=== PATIENT | male | born 1970 | race Hispanic/Latino ===

== ENCOUNTER 2018-12-02 11:28 | Inpatient (IN) | payer OTHER, SELFPAY ==
[2018-12-02] VITALS (9 sets, daily range): BP systolic 106–155; BP diastolic 79–89; PULSE 100–136; RESP 16–28; TEMP 36.5–39.6; O2SAT 94–98; BMI 25.4; BMI 25.0
--- NOTE | 2018-12-02 11:49 | EKG12_ITS ---
Test Reason : COUGH Blood Pressure : / mmHG Vent. Rate : 132 BPM Atrial Rate : 132 BPM P-R Int : 130 ms QRS Dur : 070 ms QT Int : 306 ms P-R-T Axes : 037 -03 028 degrees QTc Int : 453 ms Sinus tachycardia Otherwise normal ECG Confirmed by DAPHNE WALLACE, NIKITA ([id number]), senior editor SUKI CONN ([id number]) on 12/04/2018 3:11:40 PM Referred By: Tyler Munoz Confirmed By:NIKITA SERNA MD
--- NOTE | 2018-12-02 11:49 | RAD_ITS ---
STUDY: X-RAY CHEST REASON FOR EXAM: Male, 48 years old. Cough. TECHNIQUE: Single AP portable view of the chest. COMPARISON: None. FINDINGS: EKG electrodes are seen. Low lung volumes. Increased markings at the lung bases suggestive of either bibasilar atelectasis and/or infiltrates. Follow-up is recommended. There is no demonstrated pleural abnormality. Normal size heart. Normal mediastinum and ericka. Normal visualized pulmonary arteries. Normal visualized aortic arch and descending thoracic aorta. Normal visualized thoracic spine. Normal visualized ribs, clavicles, and shoulders. There is no demonstrated abnormality of the visualized soft tissue structures of the upper abdomen. RAD/Chest 1 View (Portable) IMPRESSION: Increased markings at the lung bases suggestive of atelectasis and/or early infiltrates. Follow-up is recommended. Electronically Signed: Álvaro Chávez MD at 12:46 EST , Service support ,
--- NOTE | 2018-12-02 11:54 | NURSING ---
NO OLD EKGS
[2018-12-02 12:18] LABS: Absolute Lymphocyte Count 0.48 X10^3/ul (0.83-4.51); Absolute Neutrophil Count 5.3 X10^3/uL (2.0-7.7); Basophil# 0.03 X10^3/uL; Basophil% 0.5 % (0-1); Hematocrit 47.2 % (40-54); Hemoglobin 16.5 g/dl (13.0-16.5); Lymphocyte # 0.48 X10^3/ul (4.0); Lymphocyte % 7.7 % (19-41); Mean Corpuscular Hgb 32.9 pg (27.0-32.0); Mean Corpuscular Volume 94.2 fL (80-94); Mean Platelet Vol. 11.3 fl (6.2-12.0); Monocyte% 6.4 % (0-10); Neutrophil # 5.33 X10^3/uL (2.7-7.7); Neutrophil % 85.2 % (47-70); Platelet Count 196 K/mm3 (150-450); RBC Distribution Width CV 13.5 % (11.6-14.6); Red Blood Count 5.01 M/mm3 (4.6-6.2); White Blood Count 6.3 K/mm3 (4.4-11.0)
[2018-12-02 12:19] LABS: Differential Indicated SCAN CRITERIA MET; POSITIVE COUNT NO; POSITIVE DIFFERENTIAL YES; POSITIVE MORPHOLOGY NO
[2018-12-02] MEDS: Ondansetron 4 MG/2 ML Vial IV ×2 (12:19→17:56)
[2018-12-02] MEDS: 0.9% Normal Saline 1,000 ML 1000 ML IV ×2 (12:19→15:18)
[2018-12-02] MEDS: Acetaminophen 500 MG Tablet 1000 MG PO (12:20)
[2018-12-02 12:27] LABS: Anion Gap 13 (5-15); BUN 23 mg/dL (7-18); BUN/Creat Ratio 13.9 RATIO (10-20); Calcium,Total 9.1 mg/dL (8.5-10.1); Chloride 98 mmol/L (98-107); Creatinine, Serum 1.65 mg/dL (0.70-1.30); EST Glomerular Filtration Rate 47 mL/min (>60); Est Glom Filt Rate - Afr Amer 57 mL/min (>60); Glucose 117 mg/dL (74-106); Potassium 3.7 mmol/L (3.5-5.1); Sodium Level 131 mmol/L (136-145)
[2018-12-02 12:40] LABS: Bacteria 0 SEEN /hpf (None Seen); Mucous, Urine 0 SEEN /hpf (<or=2+); Red Blood Cells-Urine 0 SEEN /hpf (0-5); Squamous Epithelial Cells - UA 0 SEEN /hpf (0-5)
[2018-12-02 12:43] LABS: Color, Urine Yellow (Yellow); Glucose, Dipstick Normal (Normal); Ketone-Dipstick 15 mg/dl (Negative); Leukocyte Esterase-Dipstick 25 /ul (Negative); Nitrite-Dipstick Negative (Negative); Occult Blood-Urine 50 /ul (Negative); Protein-Dipstick 500 mg/dl (Negative); Specific Gravity, Urine 1.025 (1.002-1.030); Urine Clarity Sl. Cloudy (Clear); Urine Urobilinogen 1 mg/dl (Normal)
[2018-12-02] MEDS: Benzonatate 100 MG Capsule 200 MG PO (12:43)
[2018-12-02 12:44] LABS: Urine Bilirubin Dipstick 1 mg/dL (Negative)
[2018-12-02 12:52] LABS: White Blood Cells 0-5 SEEN /hpf (0-5)
[2018-12-02 12:53] LABS: Amorphous Sediment 1+; Fine Granular Cast- Urine 0-5 SEEN /lpf (0-5); Hyaline Cast 0-5 SEEN /lpf (0-5)
[2018-12-02 12:56] LABS: Platelet Estimate ADEQUATE (ADEQ); Red Cell Morphology NORM C+C NORMAL (NORM C&C)
--- NOTE | 2018-12-02 13:13 | ED.VISSUMM ---
- ER Visit Summary Date of Service: 12/02/18 Chief Complaint: Sick History of Present Illness: The patient is a 48 M with multiple symptoms that have been getting worse over the past week. He has had a fever, shakes, cough, nausea, vomiting, decreased sleep. Symptoms are severe despite taking ibuprofen and Mucinex. He is otherwise previously healthy. He quit smoking. He did not have a flu shot this year. Physical Examination: Afebrile. Blood pressure normal. Heart rate 136 and respiratory rate 18. 98% on room air. Patient is alert and oriented. No acute distress. HEENT exam unremarkable. Heart is tachycardic but regular. Lungs are clear bilaterally. Abdomen soft and nontender. CVA is nontender. Skin is normal without rash. Test Results: EKG showed sinus rhythm at a rate of 132. No sign of acute ischemia or infarction pattern. CBC unremarkable. Sodium 131, CO2 20, glucose 117, BUN 23, creatinine 1.65. Urinalysis shows no sign of UTI. Influenza test negative. Chest x-ray showed bibasilar atelectasis versus infiltrates. Cultures and lactic acid pending. Emergency Department Course and Treatment: Patient has symptoms of influenza. He is tachycardic. He was treated with fluids, Tylenol, Zofran. On reevaluation, temperature is 103 and heart rate remains in the 120s. Respiratory rate is in the 20s. Patient meets SIRS criteria. Influenza test was negative. White count was normal. Labs showed an elevated creatinine. I do not have a baseline, but I am concerned for acute kidney injury. His chest x-ray was not overly impressive, but it does appear that he might have some early infiltrates. I am concerned for a respiratory infection with sepsis. I did add on a lactic acid as well as cultures and he was treated with Levaquin. I will discuss with the hospitalist, as I believe he could benefit from antibiotics, fluids, and close monitoring. Treatment Plan: As above Disposition: Admission Impression: 1. Pneumonia 2. Sepsis 3. Acute kidney injury This note was generated with [employer] dictation software. It may contain incorrect words, spelling, and punctuation that were not noted in review of the chart prior to signing ED Disposition - Plan for ED Patient: Chief Complaint: General Illness Referrals: Care Physician,No Primary [Primary Care Provider] -
[2018-12-02] MEDS: levoFLOXacin IV 750 MG/150 ML BAG 100 MG IV (13:40)
--- NOTE | 2018-12-02 14:04 | NURSING ---
MED SURG SEPSIS, PNEUMONIA, SAMINA DOMINIC
[2018-12-02 14:14] LABS: Lactic Acid 1.6 mmol/L (0.4-2.0)
--- NOTE | 2018-12-02 16:30 | HP.PCM_ITS ---
Problem List (1) Nonproductive cough Status: Acute (2) Chills Status: Acute (3) Malaise and fatigue Status: Acute History of Present Illness Date of Admission: 12/02/18 Chief Complaint: Malaise, chills, nonproductive cough, subjective fever The patient is a 48 year old M seen in the emergency room at [facility] with chief complaint of nonproductive cough, chills, and subjective fever over the last week. Patient also complained of generally not feeling well. Patient also complained of some intermittent diarrhea over the last 48 hours. Patient denied any hemoptysis, denied any dysuria, he denied any hematuria. Patient did complain of generalized muscle aching and pain in his rib area which she felt was secondary to persistent coughing. Workup in the emergency room included a white blood cell count which was normal at 6.3, chemistry profile was remarkable for a creatinine of 1.65 with an elevated BUN of 23, patient's lactic acid was normal, patient's influenza screen was negative. Vital signs obtained in the emergency room revealed a temperature of 103.2, patient was tachycardic and was sweaty. Patient had a chest x-ray which showed increased markings at the lung bases indicative of possible pneumonia or atelectasis. Patient's pulse ox on room air was normal. Patient was felt to have community-acquired pneumonia with sepsis, he was given IV Levaquin and he will be admitted to the [facility] floor for treatment. Past Medical History Allergies No Known Allergies Allergy (Verified 12/02/18 11:31) Surgical History: no surgical history Psychiatric History: No pertinent psych hx Lives: Spouse/ Significant Other Smoking Status: Former smoker Tobacco Use: Cigarettes Alcohol: Occasional Drugs: None - *Family History Maternal History Items: No pertinent history Paternal History Items: No pertinent history Review of Systems Constitutional: Reports: Chills, Fever, Malaise, Fatigue. Denies: Anorexia, Night Sweats, Weakness, Weight Change Eyes: Denies: Blurred vision, Cataracts, Conjunctivae Inflammation, Double vision, Drainage HEENT: Denies: Difficulty Swallowing, Dysphasia, Ear Pain, Eye Pain, Hearing Changes, Nasal bleeding, Nasal Congestion, Post Nasal Drip Cardiovascular: Reports: Chest Pain - Patient complained of rib pain. Denies: Claudication, Chest Pressure, Chest Tightness, Edema, Heaviness, Orthopnea, Palpitations, Paroxysmal Noc. Dyspnea, Syncope Respiratory: Reports: Cough. Denies: Hemoptysis, Shortness of Breath, Shortness of breath at rest, Shortness of breath upon exertion, Sputum production, Wheezing Gastrointestinal: Reports: Diarrhea. Denies: Abdominal Pain, Constipation Genitourinary: Denies: Frequency, Hematuria, Nocturia, Retention Musculoskeletal: Reports: Muscle pain - Generalized muscle pain times several days. Denies: Foot Pain, Hand Pain, Joint stiffness, Joint swelling, Joint Tenderness, Leg Pain Skin: Denies: Dryness, Jaundice, Pruritis, Rash Neurological: Denies: Balance problems, Blurred vision, Double vision, Change in Speech, Difficulty swallowing, Focal weakness, Headaches, Incoordination Psychiatric: Denies: Anxiety, Depression Endocrine: Denies: Heat/ Cold Intolerance, Polydipsia, Hx of Irradiation, Hx of Thyroiditis Hematologic/ Lymphatic: Denies: Anemia, Easy Bruising, Purpura, Hx of blood clot VTE Information - Inpt Only VTE Present on Admission: No VTE Mechan Device Prophylaxis: None VTE Pharm Prophylaxis ordered?: No Reason prophylaxis not ordered:: Treatment Not Indicated - low risk for VTE Patient Problems: Active and Suspected Problems Nonproductive cough (Acute) Chills (Acute) Malaise and fatigue (Acute) - Physical Exam General: Alert, Oriented x3, Cooperative, No apparent distress, Well developed, Well nourished HEENT: Atraumatic, PERRLA, EOMI, Normocephalic Oral: Dry Mucosa Neck: Supple, No JVD, Negative Carotid Bruits, No Nuchal Rigidity, Trachea Midline, Thyroid Normal Size and Texture Lungs: Normal air movement, No rhonchi, No wheeze, Rales - Inspiratory rales were noted at the right lung base Cardiovascular: Regular rate, Regular Rhythm, No murmurs, PMI Normal, No rub noted, No Gallop, Tachycardic Abdomen: Bowel Sounds Present, Soft, Non Tender, Non-Distended, No hernias noted Extremities: No clubbing, No cyanosis, No edema, Capillary Refill Less than 3 Seconds Skin: No rashes, No breakdown Musculoskeletal: No Tenderness to Palpation of Joints or Extremities Neurological: Cranial nerves II-XII grossly intact, Neuro grossly intact, Muscle tone normal, Sensory exam intact to light touch and pain, Coordination normal Psych/Mental Status: Normal Affect, Appropriate, Alert and oriented to time, place, person, mood and affect Vital Signs Temp Pulse Resp BP Pulse Ox 101.7 F H 114 H 28 H 106/83 H 94 12/02/18 14:50 12/02/18 14:50 12/02/18 14:50 12/02/18 14:50 12/02/18 14:50 Oxygen Delivery Method Room Air Weight: 60.1 kg Body Mass Index (BMI) 25.0 Microbiology Past 72 Hours 12/02/18 12:05 Influenza Types A,B Direct FA (ADITYA) - Final Mucosa - Nose Laboratory Tests Past 24 Hrs 12/02/18 12/02/18 12/02/18 12:05 12:05 12:30 WBC 6.3 RBC 5.01 Hgb 16.5 Hct 47.2 MCV 94.2 H MCH 32.9 H MCHC 35.0 RDW 13.5 RDW Differential 45.0 H Plt Count 196 MPV 11.3 Immature Gran % (Auto) 0.200 Neut % (Auto) 85.2 H Lymph % (Auto) 7.[address] [place] % (Auto) 6.4 Eos % (Auto) 0.0 Baso % (Auto) 0.5 Absolute Neuts (auto) 5.3 Absolute Lymphs (auto) 0.48 L Total Counted Not Reportable Differential Comment Platelet Estimate ADEQUATE RBC Morphology NORM C+C Sodium 131 L Potassium 3.7 Chloride 98 Carbon Dioxide 20.0 L Anion Gap 13 BUN 23 H Creatinine 1.65 H Estim Creat Clear Calc 40.50 Est GFR (MDRD) Af Amer 57 L Est GFR (MDRD) Non-Af 47 L BUN/Creatinine Ratio 13.9 Glucose 117 H Lactic Acid Calcium 9.1 Urine Color Yellow Urine Clarity Sl. Cloudy Urine pH 5.0 Ur Specific [place] 1.025 Urine Protein 500 H Urine Glucose (UA) Normal Urine Ketones 15 H Urine Occult Blood 50 H Urine Nitrite Negative Urine Bilirubin 1 H Urine Urobilinogen 1 H Ur Leukocyte Esterase 25 H Urine RBC 0 SEEN Urine WBC 0-5 SEEN Ur Squamous Epith Cells 0 SEEN Amorphous Sediment 1+ Urine Bacteria 0 SEEN Hyaline Casts 0-5 SEEN Fine Granular Casts 0-5 SEEN Urine Mucus 0 SEEN 12/02/18 13:15 WBC RBC Hgb Hct MCV MCH MCHC RDW RDW Differential Plt Count MPV Immature Gran % (Auto) Neut % (Auto) Lymph % (Auto) [place] % (Auto) Eos % (Auto) Baso % (Auto) Absolute Neuts (auto) Absolute Lymphs (auto) Total Counted Differential Comment Platelet Estimate RBC Morphology Sodium Potassium Chloride Carbon Dioxide Anion Gap BUN Creatinine Estim Creat Clear Calc Est GFR (MDRD) Af Amer Est GFR (MDRD) Non-Af BUN/Creatinine Ratio Glucose Lactic Acid 1.6 Calcium Urine Color Urine Clarity Urine pH Ur Specific [place] Urine Protein Urine Glucose (UA) Urine Ketones Urine Occult Blood Urine Nitrite Urine Bilirubin Urine Urobilinogen Ur Leukocyte Esterase Urine RBC Urine WBC Ur Squamous Epith Cells Amorphous Sediment Urine Bacteria Hyaline Casts Fine Granular Casts Urine Mucus Assessment/Plan All Active Problems Nonproductive cough (Acute) Chills (Acute) Malaise and fatigue (Acute) #1 sepsis secondary to bilateral community-acquired pneumonia-patient will be admitted to [facility], given IV Levaquin daily, labs will be monitored #2 bilateral community-acquired pneumonia-felt to be either viral or gram- positive bacterial-test x-ray will be repeated tomorrow, urinary antigens for strep pneumonia and Legionella will be obtained, respiratory panel will be obtained #3 dehydration-IV fluids will be given #4 diarrhea-etiology unclear at this point, patient will be given Imodium as needed and this will be monitored Code Visit Inpatient E&M: 04212 Init Hosp L3
[2018-12-02] MEDS: 0.9% Normal Saline 1,000 ML 175 ML IV ×2 (16:51→22:50)
[2018-12-02] MEDS: Acetaminophen 325 MG Tablet 650 MG PO (17:55)
[2018-12-02] MEDS: 0.9% NaCl Peripheral Flush Adult/Peds IV (17:56)
[2018-12-02] MEDS: Albuterol 2.5 MG/3 ML VIAL.NEB. INHALATION (19:20)
[2018-12-02] MEDS: guaiFENesin Dm 10 ML UDC PO (22:56)
[2018-12-03] VITALS (9 sets, daily range): BP systolic 116–136; BP diastolic 73–89; PULSE 78–101; RESP 14–20; TEMP 37.2–38.7; O2SAT 95–98
[2018-12-03] MEDS: Ondansetron 4 MG/2 ML Vial IV (00:13)
[2018-12-03] MEDS: 0.9% NaCl Peripheral Flush Adult/Peds IV (00:13)
[2018-12-03] MEDS: Acetaminophen 325 MG Tablet 650 MG PO ×3 (01:48→17:08)
[2018-12-03] MEDS: 0.9% Normal Saline 1,000 ML 175 ML IV ×4 (05:13→23:17)
[2018-12-03] MEDS: guaiFENesin Dm 10 ML UDC PO (05:13)
--- NOTE | 2018-12-03 05:59 | RAD_ITS ---
STUDY: X-RAY CHEST REASON FOR EXAM: Male, 48 years old. Cough. TECHNIQUE: PA and lateral views of the chest. COMPARISON: Comparison is made with prior study dated December 02, 2018. FINDINGS: There now is evidence of bilateral patchy infiltrates worse in the right lower lobe. There is no demonstrated pleural abnormality. Normal size heart. Normal mediastinum and ericka. Normal visualized pulmonary arteries. Normal visualized aortic arch and descending thoracic aorta. There are degenerative changes of the visualized thoracic spine. Normal visualized ribs, clavicles, and shoulders. There is no demonstrated abnormality of the visualized soft tissue structures of the upper abdomen. RAD/Chest PA and Lateral IMPRESSION: Bilateral patchy infiltrates worse in the right lower lobe. This has progressed as compared to prior study. Electronically Signed: Álvaro Chávez MD at 8:34 EST , Service support ,
[2018-12-03] MEDS: Albuterol 2.5 MG/3 ML VIAL.NEB. INHALATION ×3 (07:15→18:51)
--- NOTE | 2018-12-03 07:47 | PN_ITS ---
Patient Problems: Active and Suspected Problems Nonproductive cough (Acute) Chills (Acute) Malaise and fatigue (Acute) Subjective: Patient is a [age]-year-old gentleman admitted with progressive generalized weakness associated with fever and cough. An assessment of sepsis secondary to bilateral pneumonia was made admitted to regular nursing floor for further management 12/03/2018: Patient seen shivering in bed, complaining of sore throat did request for throat culture as well as rapid strep throat screen Objective: GENERAL: cooperative HEENT: Atraumatic; moist oral mucosa EYES; Anicteric, Normal Conjunctiva NECK; supple, normal thyroid, no distended JVD. RESPIRATORY: Diminished to auscultation bilaterally, CARDIOVASCULAR: Regular S1 S2, no audible murmurs GI: soft, non-tender, normoactive bowel sounds, : No Renal angle tenderness; EXTREMITIES: No edema, no clubbing, no cyanosis. MUSCULOSKELETAL: No Joint Tenderness; no muscle waisting NEURO: Awake; no lateralizing signs. SKIN: No Rash PSYCH; Normal affect Vitals/I&O's: Vital Signs Temp Pulse Resp BP Pulse Ox 99.5 F H 101 H 18 136/89 H 97 12/03/18 02:00 12/03/18 02:00 12/03/18 02:00 12/03/18 02:00 12/03/18 02:00 Oxygen Delivery Method Room Air Weight: 60.1 kg Body Mass Index (BMI) 25.0 Intake and Output for Last 24 Hours 12/01/18 12/02/18 12/03/18 23:59 23:59 23:59 Intake Total 1564 / 1564 2956 / 2956 Balance 1564 / 1564 2956 / 2956 Microbiology Past 72 Hours 12/02/18 16:10 Mucosa - Nasopharyngeal Respiratory Panel (PCR) - Final 12/02/18 23:00 Sputum, Expectorated/Coughed Gram Stain - Preliminary 12/02/18 12:30 Urine, Clean Catch Legionella Antigen - Final 12/02/18 12:30 Urine, Clean Catch Streptococcus pneumoniae Antigen (M - Final 12/02/18 12:05 Mucosa - Nose Influenza Types A,B Direct FA (ADITYA) - Final Laboratory Results 12/02/18 12:05: WBC 6.3, RBC 5.01, Hgb 16.5, Hct 47.2, MCV 94.2 H, MCH 32.9 H, MCHC 35.0, RDW 13.5, RDW Differential 45.0 H, Plt Count 196, MPV 11.3, Immature Gran % (Auto) 0.200, Neut % (Auto) 85.2 H, Lymph % (Auto) 7.7 L, [place] % (Auto) 6.4, Eos % (Auto) 0.0, Baso % (Auto) 0.5, Absolute Neuts (auto) 5.3, Absolute Lymphs (auto) 0.48 L, Total Counted Not Reportable, Differential Comment , Platelet Estimate ADEQUATE, RBC Morphology NORM C+C 12/02/18 12:05: Sodium 131 L, Potassium 3.7, Chloride 98, Carbon Dioxide 20.0 L, Anion Gap 13, BUN 23 H, Creatinine 1.65 H, Estim Creat Clear Calc 40.50, Est GFR (MDRD) Af Amer 57 L, Est GFR (MDRD) Non-Af 47 L, BUN/Creatinine Ratio 13.9, Glucose 117 H, Calcium 9.1 12/02/18 12:30: Urine Color Yellow, Urine Clarity Sl. Cloudy, Urine pH 5.0, Ur Specific [place] 1.025, Urine Protein 500 H, Urine Glucose (UA) Normal, Urine Ketones 15 H, Urine Occult Blood 50 H, Urine Nitrite Negative, Urine Bilirubin 1 H, Urine Urobilinogen 1 H, Ur Leukocyte Esterase 25 H, Urine RBC 0 SEEN, Urine WBC 0-5 SEEN, Ur Squamous Epith Cells 0 SEEN, Amorphous Sediment 1+, Urine Bacteria 0 SEEN, Hyaline Casts 0-5 SEEN, Fine Granular Casts 0-5 SEEN, Urine Mucus 0 SEEN 12/02/18 13:15: Lactic Acid 1.6 Current Medications Acetaminophen (Tylenol) 650 mg PO Q6H PRN PRN PRN Reason: Mild Pain (scale 0-3)/T>100.7 Last Admin: 12/03/18 07:45 Dose: 650 mg Albuterol Sulfate (Ventolin Aerosols) 2.5 mg INHALATION Q6HWA.RT MARY Last Admin: 12/03/18 07:15 Dose: 2.5 mg Guaifenesin (Robitussin Dm) 10 ml PO Q6H PRN PRN PRN Reason: COUGH Last Admin: 12/03/18 05:13 Dose: 10 ml Sodium Chloride () 1,000 mls @ 175 mls/hr IV .Q5H43M [facility] Last Admin: 12/03/18 05:13 Dose: 175 mls/hr Levofloxacin (Levaquin Iv) 750 mg in 150 mls @ 100 mls/hr IV Q24 [facility] Influenza Virus Vaccine Quadrival (Fluarix/Fluzone) 0.5 ml IM .ONCE ONE Stop: 12/03/18 10:01 Loperamide HCl (Imodium) 4 mg PO Q6H PRN PRN PRN Reason: DIARRHEA Ondansetron HCl (Zofran) 4 mg IV Q6H PRN PRN PRN Reason: NAUSEA Ondansetron HCl (Zofran) 4 mg IV Q6 [facility] Last Admin: 12/03/18 05:14 Dose: Not Given Sodium Chloride () 5 - 15 ml IV UD PRN PRN Reason: SALINE FLUSH Last Admin: 12/03/18 00:13 Dose: 10 ml Medical Necessity - Tobacco Use Smoking Status: Former smoker Tobacco Use: Cigarettes Assessment/Plan All Active Problems Nonproductive cough (Acute) Chills (Acute) Malaise and fatigue (Acute) Patient is a [age]-year-old gentleman admitted with progressive generalized weakness associated with fever and cough. An assessment of sepsis secondary to bilateral pneumonia was made admitted to regular nursing floor for further management 1. Sepsis secondary to community-acquired pneumonia: Patient has been admitted to a regular nursing floor cultures were sent on admission. Patient placed on IV fluid, antibiotics (Levaquin) as well as supplemental oxygen titrated to keep oxygen saturation greater than 90 2. Dehydration secondary to above on IV fluids with monitoring of electrolyte 3. Hyponatremia on IV fluids with monitoring of electrolytes 4. Diarrhea initially suspected to be secondary to acute viral gastroenteritis treated symptomatically 5. DVT prophylaxis SC Lovenox Active Medications Acetaminophen (Tylenol) 650 mg PO Q6H PRN PRN PRN Reason: Mild Pain (scale 0-3)/T>100.7 Last Admin: 12/03/18 07:45 Dose: 650 mg Albuterol Sulfate (Ventolin Aerosols) 2.5 mg INHALATION Q6HWA.RT [facility] Last Admin: 12/03/18 07:15 Dose: 2.5 mg Guaifenesin (Robitussin Dm) 10 ml PO Q6H PRN PRN PRN Reason: COUGH Last Admin: 12/03/18 05:13 Dose: 10 ml Sodium Chloride () 1,000 mls @ 175 mls/hr IV .Q5H43M MARY Last Admin: 12/03/18 05:13 Dose: 175 mls/hr Levofloxacin (Levaquin Iv) 750 mg in 150 mls @ 100 mls/hr IV Q24 [facility]ARY Influenza Virus Vaccine Quadrival (Fluarix/Fluzone) 0.5 ml IM .ONCE ONE Stop: 12/03/18 10:01 Loperamide HCl (Imodium) 4 mg PO Q6H PRN PRN PRN Reason: DIARRHEA Ondansetron HCl (Zofran) 4 mg IV Q6H PRN PRN PRN Reason: NAUSEA Ondansetron HCl (Zofran) 4 mg IV Q6 MARY Last Admin: 12/03/18 05:14 Dose: Not Given Sodium Chloride () 5 - 15 ml IV UD PRN PRN Reason: SALINE FLUSH Last Admin: 12/03/18 00:13 Dose: 10 ml Clinical Impression(s) from Imaging Studies Chest X-Ray 12/02/18 11:49 IMPRESSION: Increased markings at the lung bases suggestive of atelectasis and/or early infiltrates. Follow-up is recommended. Electronically Signed: Álvaro Chávez MD at 12:46 EST , Service support , Code Visit Inpatient E&M: [id number] Subs Hosp L3
--- NOTE | 2018-12-03 08:42 | CT_ITS ---
STUDY: CT CHEST WITHOUT CONTRAST REASON FOR EXAM: Male, 48 years old. Cough, fatigue and chills. RADIATION DOSAGE (If Supplied By Facility): CTDIvol = ( 13.35 ) mGy, DLP = ( 493.59 ) mGycm TECHNIQUE: Transaxial imaging was performed without the administration of intravenous contrast material. Multiplanar coronal and sagittal images were reformatted. Individualized dose optimization techniques were used for this CT. COMPARISON: Comparison is made with prior chest radiograph done earlier in the day. FINDINGS: Small bilateral benign-appearing axillary lymph nodes. Multifocal patchy alveolar infiltrates in both lungs worse in the right upper lobe and right lower lobe. This may represent pneumonic infiltrates. Radiological follow-up is recommended. There is no demonstrated pleural abnormality. There are calcifications of the coronary arteries. There are multiple small lymph nodes within the mediastinum, which are normal in size and morphology most compatible with reactive lymph hyperplasia. Normal hilar regions. Normal unenhanced pulmonary arteries. Normal aorta arch and descending thoracic aorta. There are multi-level degenerative changes of the thoracic spine. Fatty infiltration of the liver. There is a 1 cm x 9.3 mm cyst in the lower aspect of the right lobe of the liver. Small hiatal hernia. CT/Chest without Contrast IMPRESSION: Multifocal patchy alveolar infiltrates worse in the right upper and right lower lobes. This may represent pneumonic infiltrates. Radiographic follow-up is recommended. Diffuse fatty infiltration of the liver. I suspect a 1 cm x 0.93 cm cyst in the right lobe of the liver. Electronically Signed: Álvaro Chávez MD at 13:49 EST , Service support ,
[2018-12-03 09:12] LABS: Hematocrit 37.9 % (40-54); Mean Corp Hgb Conc 34.3 g/gl (32-36); Mean Corpuscular Hgb 33.1 pg (27.0-32.0); Mean Corpuscular Volume 96.4 fL (80-94); Mean Platelet Vol. 10.8 fl (6.2-12.0); Platelet Count 184 K/mm3 (150-450); RBC Distribution Width CV 13.5 % (11.6-14.6); RBC Distribution Width SD 46.2 fl (35.1-43.9); Red Blood Count 3.93 M/mm3 (4.6-6.2); White Blood Count 4.5 K/mm3 (4.4-11.0)
[2018-12-03 09:15] LABS: Scan Indicated on CBC? Y/N NO
[2018-12-03 09:30] LABS: Anion Gap 9 (5-15); BUN 9 mg/dL (7-18); BUN/Creat Ratio 10.8 RATIO (10-20); Calcium,Total 7.4 mg/dL (8.5-10.1); Chloride 109 mmol/L (98-107); Creatinine, Serum 0.84 mg/dL (0.70-1.30); EST Glomerular Filtration Rate 104 mL/min (>60); Est Glom Filt Rate - Afr Amer 126 mL/min (>60); Estimated Creatinine Clearance 79.56 ml/min; Glucose 93 mg/dL (74-106); Magnesium 2.2 mg/dL (1.6-2.6); Potassium 3.6 mmol/L (3.5-5.1); Sodium Level 137 mmol/L (136-145)
[2018-12-03 09:31] LABS: Lactic Acid 1.1 mmol/L (0.4-2.0)
[2018-12-03] MEDS: levoFLOXacin IV 750 MG/150 ML BAG 100 MG IV (09:52)
[2018-12-03] MEDS: Oseltamivir Phosphate 30 MG Capsule PO ×2 (09:54→21:36)
--- NOTE | 2018-12-03 13:30 | CASEMGMT ---
AMRIK GRAY Face to Face with patient for initial transition planning/care coordination assessment. RN MARINA introduced self and role at [facility]. Patient lying in bed, alert and oriented. Patient willing to participate in assessment and is able to answer all questions appropriately. Care providers, pharmacy, and demographics verified. Patient wishes to discharge home, denies need for home health at this time. Patient states he has no further needs or concerns at this time. CM to follow for discharge planning needs that may arise. PCP: No PCP. Will provide patient of list of local Primary Providers Specialists: None [facility] Insurance: [employer] Prescription Benefit: Yes Living Will/HPOA: None LNOK: Significant other ADA Living Arrangements: Patient lives with Ada in an apartment with no step to enter. Patient is independent at home. Transportation: Ada, sig. other DME/HHC: Patient denies need for DME. Disposition Plan: Patient to discharge home with family support and follow-up plans in place. Gwen AN, RN, CM
--- NOTE | 2018-12-03 16:44 | CHAPLAIN ---
Type of Pastoral Visit _x__ Initial Visit ___ Follow-up Visit ___ On-call Visit ___ General Patient Visit ___ Spiritual Assessment ___ Family Conference ___ Bereavement ___ Rapid Response ___ Code Blue ___ Other (describe below) Pastoral Care Referral From _x__ Patient ___ Family ___ Nurse ___ Physician ___ Media Services Coordinator ___ [employer] ___ Other (describe below) Sacrament/Intervention _x__ Active listening ___ Anointing ___ Hoahaoism _x__ Bereavement ___ Communion _x__ Jo exploration ___ ___ Life review _x__ Prayer ___ Reconciliation ___ Sacrament of Sick _x__ Supportive presence ___ Wedding ___ Other (describe below) Pastoral Comments learned that patient's mother has recently ;
[2018-12-04] VITALS (10 sets, daily range): BP systolic 115–139; BP diastolic 50–91; PULSE 78–104; RESP 16–18; TEMP 36.3–38.1; O2SAT 93–99
[2018-12-04] MEDS: guaiFENesin Dm 10 ML UDC PO ×2 (00:04→11:03)
[2018-12-04] MEDS: 0.9% Normal Saline 1,000 ML 175 ML IV (05:14)
[2018-12-04 06:03] LABS: Anion Gap 11 (5-15); BUN 6 mg/dL (7-18); BUN/Creat Ratio 8.2 RATIO (10-20); Calcium,Total 7.9 mg/dL (8.5-10.1); Chloride 108 mmol/L (98-107); Creatinine, Serum 0.73 mg/dL (0.70-1.30); EST Glomerular Filtration Rate 121 mL/min (>60); Est Glom Filt Rate - Afr Amer 147 mL/min (>60); Estimated Creatinine Clearance 91.54 ml/min; Glucose 106 mg/dL (74-106); Magnesium 2.1 mg/dL (1.6-2.6); Potassium 3.7 mmol/L (3.5-5.1); Sodium Level 140 mmol/L (136-145)
[2018-12-04 06:04] LABS: Hematocrit 37.3 % (40-54); Hemoglobin 12.7 g/dl (13.0-16.5); Mean Corpuscular Hgb 33.2 pg (27.0-32.0); Mean Corpuscular Volume 97.4 fL (80-94); Mean Platelet Vol. 11.1 fl (6.2-12.0); Platelet Count 189 K/mm3 (150-450); RBC Distribution Width CV 13.5 % (11.6-14.6); RBC Distribution Width SD 46.5 fl (35.1-43.9); Red Blood Count 3.83 M/mm3 (4.6-6.2); Scan Indicated on CBC? Y/N NO; White Blood Count 6.8 K/mm3 (4.4-11.0)
[2018-12-04] MEDS: Albuterol 2.5 MG/3 ML VIAL.NEB. INHALATION ×2 (07:15→13:54)
--- NOTE | 2018-12-04 08:48 | DCINST_ITS ---
- Discharge Diagnoses Current Active Problems: Current Active and Chronic Problems Nonproductive cough (Acute) Chills (Acute) Malaise and fatigue (Acute) You will use the following diet at home:: No restrictions Discharge Activity: Return to Normal Activity Allergies/Adverse Reactions: Allergies No Known Allergies Allergy (Verified 12/02/18 11:31) Medications to take at Discharge levoFLOXacin tablet [Levaquin tablet] 750 mg PO DAILY@0600 #5 tab 12/04/18 The following prescriptions were given: levoFLOXacin tablet [Levaquin tablet] 750 mg PO DAILY@0600 #5 tab Primary Care Physician: Care Physician,No Primary [Primary Care Provider] - Please follow up with your Primary Care Physician in: in 5-7 days Test Results: Test results from this visit will be discussed in further detail at your follow- up appointment, if applicable. Proposed Discharge Date: 12/04/18
--- NOTE | 2018-12-04 08:48 | PCM.DC.SUM ---
Discharge Date and Diagnosis - Problem List Patient Problems: Active and Suspected Problems Atypical pneumonia (Acute) Nonproductive cough (Acute) Chills (Acute) Malaise and fatigue (Acute) Date of Admission: 12/02/18 Date of Discharge: 12/04/18 - Primary Discharge Diagnosis Active and Suspected Problems Atypical pneumonia (Acute) Nonproductive cough (Acute) Chills (Acute) Malaise and fatigue (Acute) Hospital Course and Treatment Imaging Results: Clinical Impression(s) from Imaging Studies Chest X-Ray 12/02/18 11:49 IMPRESSION: Increased markings at the lung bases suggestive of atelectasis and/or early infiltrates. Follow-up is recommended. Electronically Signed: Álvaro Chávez MD at 12:46 EST , Service support , Chest X-Ray 12/03/18 05:59 IMPRESSION: Bilateral patchy infiltrates worse in the right lower lobe. This has progressed as compared to prior study. Electronically Signed: Álvaro Chávez MD at 8:34 EST , Service support , Chest CT 12/03/18 08:42 IMPRESSION: Multifocal patchy alveolar infiltrates worse in the right upper and right lower lobes. This may represent pneumonic infiltrates. Radiographic follow-up is recommended. Diffuse fatty infiltration of the liver. I suspect a 1 cm x 0.93 cm cyst in the right lobe of the liver. Electronically Signed: Álvaro Chávez MD at 13:49 EST , Service support , Summary of Care Provided: Patient is a [age]-year-old gentleman admitted with progressive generalized weakness associated with fever and cough. An assessment of sepsis secondary to bilateral pneumonia was made admitted to regular nursing floor for further management 1. Sepsis secondary to community-acquired pneumonia: Patient has been admitted to a regular nursing floor cultures were sent on admission. Patient placed on IV fluid, antibiotics (Levaquin) as well as supplemental oxygen titrated to keep oxygen saturation greater than 90 2. Dehydration secondary to above on IV fluids with monitoring of electrolyte 3. Hyponatremia on IV fluids with monitoring of electrolytes 4. Diarrhea initially suspected to be secondary to acute viral gastroenteritis treated symptomatically 5. DVT prophylaxis SC Lovenox Patient Problems: Active and Suspected Problems Atypical pneumonia (Acute) Nonproductive cough (Acute) Chills (Acute) Malaise and fatigue (Acute) - Physical Exam General: Alert, Oriented x3 Lungs: Diminished Cardiovascular: Regular rate, Regular Rhythm Neurological: Neuro grossly intact Psych/Mental Status: Normal Affect Vital Signs Temp Pulse Resp BP Pulse Ox 99.8 F H 78 16 139/80 H 95 12/04/18 05:11 12/04/18 05:11 12/04/18 05:11 12/04/18 05:11 12/04/18 05:11 Oxygen Delivery Method Room Air Weight: 60.1 kg Body Mass Index (BMI) 25.0 Intake and Output for Last 24 Hours 12/02/18 12/03/18 12/04/18 23:59 23:59 23:59 Intake Total 1564 / 1564 7293 / 7293 989 / 989 Balance 1564 / 1564 7293 / 7293 989 / 989 Microbiology Past 72 Hours 12/02/18 23:00 Gram Stain - Final Sputum, Expectorated/Coughed Respiratory Culture - Preliminary Appears to be normal respiratory santiago. Further studies to follow. 12/03/18 09:50 Group A Streptococcus Rapid Screen - Final Mucosa - Throat 12/02/18 16:10 Respiratory Panel (PCR) - Final Mucosa - Nasopharyngeal 12/02/18 12:30 Legionella Antigen - Final Urine, Clean Catch 12/02/18 12:30 Streptococcus pneumoniae Antigen (M - Final Urine, Clean Catch 12/02/18 12:05 Influenza Types A,B Direct FA (ADITYA) - Final Mucosa - Nose Laboratory Tests Past 24 Hrs 12/03/18 12/03/18 12/03/18 09:00 09:00 09:00 WBC 4.5 RBC 3.93 L Hgb 13.0 Hct 37.9 L MCV 96.4 H MCH 33.1 H MCHC 34.3 RDW 13.5 RDW Differential 46.2 H Plt Count 184 MPV 10.8 Sodium 137 Potassium 3.6 Chloride 109 H Carbon Dioxide 19.0 L Anion Gap 9 BUN 9 Creatinine 0.84 Estim Creat Clear Calc 79.56 Est GFR (MDRD) Af Amer 126 Est GFR (MDRD) Non-Af 104 BUN/Creatinine Ratio 10.8 Glucose 93 Lactic Acid 1.1 Calcium 7.4 L Magnesium 2.2 12/04/18 12/04/18 05:30 05:30 WBC 6.8 RBC 3.83 L Hgb 12.7 L Hct 37.3 L MCV 97.4 H MCH 33.2 H MCHC 34.0 RDW 13.5 RDW Differential 46.5 H Plt Count 189 MPV 11.1 Sodium 140 Potassium 3.7 Chloride 108 H Carbon Dioxide 21.0 Anion Gap 11 BUN 6 L Creatinine 0.73 Estim Creat Clear Calc 91.54 Est GFR (MDRD) Af Amer 147 Est GFR (MDRD) Non-Af 121 BUN/Creatinine Ratio 8.2 L Glucose 106 Lactic Acid Calcium 7.9 L Magnesium 2.1 Discharge Diet: No Restrictions Discharge Activity: Return to Normal Activity Home Medications: Medications to take at Discharge levoFLOXacin tablet [Levaquin tablet] 750 mg PO DAILY@0600 #5 tab 12/04/18 Following Prescrptions Were Given to Patient: levoFLOXacin tablet [Levaquin tablet] 750 mg PO DAILY@0600 #5 tab Primary Care Physician: Care Physician,No Primary [Primary Care Provider] - Please follow up with your Primary Care Physician in: in 5-7 days Disposition: Home Minutes spent on discharge:: 35 Patient Condition:: Stable Medical Necessity - Tobacco Use Smoking Status: Former smoker Tobacco Use: Cigarettes Meaningful Use Info Meaningful Use Diagnoses (Choose all that apply): None applicable Code Visit Inpatient E&M: 96784 Disch Hosp
[2018-12-04] MEDS: Oseltamivir Phosphate 30 MG Capsule PO (10:59)
[2018-12-04] MEDS: levoFLOXacin 750 MG Tablet PO (11:03)
--- NOTE | 2018-12-04 11:37 | PCM.PN.HOSP ---
Patient Problems: Active and Suspected Problems Atypical pneumonia (Acute) Nonproductive cough (Acute) Chills (Acute) Malaise and fatigue (Acute) Subjective: Patient seen this a.m. appears restless and tremulous. Patient was questioned about alcohol use which he did admit. Patient's girlfriend also reported patient being confused and not making sense. Plans to discharge patient home subsequently discontinued and assessment of acute alcohol withdrawal made patient was started on Librium for medical stabilization. Objective: GENERAL: Patient appears restless and tremulous HEENT: Atraumatic; moist oral mucosa EYES; Anicteric, Normal Conjunctiva NECK; supple, normal thyroid, no distended JVD. RESPIRATORY: Diminished to auscultation bilaterally, CARDIOVASCULAR: Regular S1 S2, no audible murmurs GI: soft, non-tender, normoactive bowel sounds, : No Renal angle tenderness; EXTREMITIES: No edema, no clubbing, no cyanosis. MUSCULOSKELETAL: No Joint Tenderness; no muscle waisting NEURO: Awake; no lateralizing signs. SKIN: No Rash PSYCH; falt affect Vitals/I&O's: Vital Signs Temp Pulse Resp BP Pulse Ox 99.8 F H 79 18 139/80 H 99 12/04/18 05:11 12/04/18 07:15 12/04/18 07:15 12/04/18 05:11 12/04/18 07:15 Oxygen Delivery Method Room Air Weight: 60.1 kg Body Mass Index (BMI) 25.0 Intake and Output for Last 24 Hours 12/02/18 12/03/18 12/04/18 23:59 23:59 23:59 Intake Total 1564 / 1564 7293 / 7293 989 / 989 Balance 1564 / 1564 7293 / 7293 989 / 989 Microbiology Past 72 Hours 12/02/18 23:00 Sputum, Expectorated/Coughed Gram Stain - Final 12/02/18 23:00 Sputum, Expectorated/Coughed Respiratory Culture - Preliminary Appears to be normal respiratory santiago. Further studies to follow. 12/03/18 09:50 Mucosa - Throat Group A Streptococcus Rapid Screen - Final 12/02/18 16:10 Mucosa - Nasopharyngeal Respiratory Panel (PCR) - Final 12/02/18 12:30 Urine, Clean Catch Legionella Antigen - Final 12/02/18 12:30 Urine, Clean Catch Streptococcus pneumoniae Antigen (M - Final 12/02/18 12:05 Mucosa - Nose Influenza Types A,B Direct FA (ADITYA) - Final Laboratory Results 12/04/18 05:30: Sodium 140, Potassium 3.7, Chloride 108 H, Carbon Dioxide 21.0, Anion Gap 11, BUN 6 L, Creatinine 0.73, Estim Creat Clear Calc 91.54, Est GFR (MDRD) Af Amer 147, Est GFR (MDRD) Non-Af 121, BUN/Creatinine Ratio 8.2 L, Glucose 106, Calcium 7.9 L, Magnesium 2.1 12/04/18 05:30: WBC 6.8, RBC 3.83 L, Hgb 12.7 L, Hct 37.3 L, MCV 97.4 H, MCH 33.2 H, MCHC 34.0, RDW 13.5, RDW Differential 46.5 H, Plt Count 189, MPV 11.1 Current Medications Acetaminophen (Tylenol) 650 mg PO Q6H PRN PRN PRN Reason: Mild Pain (scale 0-3)/T>100.7 Last Admin: 12/03/18 17:08 Dose: 650 mg Acetaminophen (Tylenol) 500 mg PO Q4H PRN PRN PRN Reason: Temp > 100.4 F Al Hydroxide/Mg Hydroxide (Mylanta Ii) 30 ml PO Q6H PRN PRN PRN Reason: dyspesia Albuterol Sulfate (Ventolin Aerosols) 2.5 mg INHALATION Q6HWA.RT [facility] Last Admin: 12/04/18 07:15 Dose: 2.5 mg Chlordiazepoxide (Librium) 0 mg PO [facility]; Taper Stop: 12/07/18 13:44 Dicyclomine HCl (Bentyl) 20 mg PO Q6H PRN PRN PRN Reason: abdominal discomfort Enoxaparin Sodium (Lovenox) 40 mg SC DAILY@0600 [facility] Last Admin: 12/04/18 05:16 Dose: Not Given [facility]olic [facility] ([facility] Acid) [facility] Guaifenesin (Robitussin Dm) 10 ml PO Q6H PRN PRN PRN Reason: COUGH Last Admin: 12/04/18 11:03 Dose: 10 ml Hydroxyzine Pamoate (Vistaril Pamoate Capsule) 50 mg PO Q6H PRN PRN PRN Reason: Mild Anxiety (score 1/3) Ibuprofen (Motrin) 600 mg PO Q8H PRN PRN PRN Reason: Mild-Moderate Pain (1-5/10) Levofloxacin (Levaquin Tablet) 750 mg PO DAILY@0600 [facility] Last Admin: 12/04/18 11:03 Dose: 750 mg Loperamide HCl (Imodium) 4 mg PO Q6H PRN PRN PRN Reason: DIARRHEA Lorazepam (Ativan) 2 mg IV X1 PRN PRN Reason: Seizure Methocarbamol (Methocarbamol) 750 mg PO Q6H PRN PRN PRN Reason: Muscle Aches Multivitamins (Multivitamin) [facility] Nicotine (Nicoderm Cq (Pbkc)) 21 mg TRANSDERM. DAILY [facility] Nutritional Formula (Lactose Free) (Ensure Enlive) 120 ml PO 4X/DAY [facility] Last Admin: 12/04/18 11:03 Dose: 120 ml Ondansetron HCl (Zofran) 4 mg IV Q6H PRN PRN PRN Reason: NAUSEA Ondansetron HCl (Zofran Odt) 4 mg PO Q6H PRN PRN PRN Reason: NAUSEA Oseltamivir Phosphate (Tamiflu) 30 mg PO BID [facility] Stop: 12/07/18 22:01 Last Admin: 12/04/18 10:59 Dose: 30 mg Sodium Chloride () 5 - 15 ml IV UD PRN PRN Reason: SALINE FLUSH Last Admin: 12/03/18 00:13 Dose: 10 ml Thiamine HCl (Vitamin B1) [facility] Trazodone HCl (Desyrel) 50 mg PO QHS [facility] Medical Necessity - Tobacco Use Smoking Status: Former smoker Tobacco Use: Cigarettes Assessment/Plan All Active Problems Atypical pneumonia (Acute) Nonproductive cough (Acute) Chills (Acute) Malaise and fatigue (Acute) Patient is a [age]-year-old gentleman admitted with progressive generalized weakness associated with fever and cough. An assessment of sepsis secondary to bilateral pneumonia was made admitted to regular nursing floor for further management 1. Sepsis secondary to community-acquired pneumonia: Patient has been admitted to a regular nursing floor cultures were sent on admission. Patient placed on IV fluid, antibiotics (Levaquin) as well as supplemental oxygen titrated to keep oxygen saturation greater than 90: Tamiflu was added for suspected influenza pneumonia. Consultation was also placed to Dr. Armando with infectious disease 2. Acute alcohol withdrawal patient placed on Librium for treatment of his alcohol withdrawal. 3. Dehydration secondary to above on IV fluids with monitoring of electrolyte 4. Hyponatremia on IV fluids with monitoring of electrolytes 5. Diarrhea initially suspected to be secondary to acute viral gastroenteritis treated symptomatically 6. Chronic alcohol abuse counseled on cessation 7. DVT prophylaxis SC Lovenox Active Medications Acetaminophen (Tylenol) 650 mg PO Q6H PRN PRN PRN Reason: Mild Pain (scale 0-3)/T>100.7 Last Admin: 12/03/18 17:08 Dose: 650 mg Acetaminophen (Tylenol) 500 mg PO Q4H PRN PRN PRN Reason: Temp > 100.4 F Al Hydroxide/Mg Hydroxide (Mylanta Ii) 30 ml PO Q6H PRN PRN PRN Reason: dyspesia Albuterol Sulfate (Ventolin Aerosols) 2.5 mg INHALATION Q6HWA.RT [facility] Last Admin: 12/04/18 07:15 Dose: 2.5 mg Chlordiazepoxide (Librium) 0 mg PO [facility] [place]; Taper Stop: 12/07/18 13:44 Dicyclomine HCl (Bentyl) 20 mg PO Q6H PRN PRN PRN Reason: abdominal discomfort Enoxaparin Sodium (Lovenox) 40 mg SC DAILY@0600 [facility] Last Admin: 12/04/18 05:16 Dose: Not Given Folic Acid (Folic Acid) [facility] Guaifenesin (Robitussin Dm) 10 ml PO Q6H PRN PRN PRN Reason: COUGH Last Admin: 12/04/18 11:03 Dose: 10 ml Hydroxyzine Pamoate (Vistaril Pamoate Capsule) 50 mg PO Q6H PRN PRN PRN Reason: Mild Anxiety (score 1/3) Ibuprofen (Motrin) 600 mg PO Q8H PRN PRN PRN Reason: Mild-Moderate Pain (1-5/10) Levofloxacin (Levaquin Tablet) 750 mg PO DAILY@0600 [facility] Last Admin: 12/04/18 11:03 Dose: 750 mg Loperamide HCl (Imodium) 4 mg PO Q6H PRN PRN PRN Reason: DIARRHEA Lorazepam (Ativan) 2 mg IV X1 PRN PRN Reason: Seizure Methocarbamol (Methocarbamol) 750 mg PO Q6H PRN PRN PRN Reason: Muscle Aches Multivitamins (Multivitamin) 1 tablet PO DAILYCM [facility] Nicotine (Nicoderm Cq (Pbkc)) 21 mg TRANSDERM. DAILY [facility] Nutritional Formula (Lactose Free) (Ensure Enlive) 120 ml PO 4X/DAY [facility] Last Admin: 12/04/18 11:03 Dose: 120 ml Ondansetron HCl (Zofran) 4 mg IV Q6H PRN PRN PRN Reason: NAUSEA Ondansetron HCl (Zofran Odt) 4 mg PO Q6H PRN PRN PRN Reason: NAUSEA Oseltamivir Phosphate (Tamiflu) 30 mg PO BID [facility] Stop: 12/07/18 22:01 Last Admin: 12/04/18 10:59 Dose: 30 mg Sodium Chloride () 5 - 15 ml IV UD PRN PRN Reason: SALINE FLUSH Last Admin: 12/03/18 00:13 Dose: 10 ml Thiamine HCl (Vitamin B1) 100 mg PO DAILYCM [facility] Trazodone HCl (Desyrel) 50 mg PO QHS [facility] Clinical Impression(s) from Imaging Studies Chest CT 12/03/18 08:42 IMPRESSION: Multifocal patchy alveolar infiltrates worse in the right upper and right lower lobes. This may represent pneumonic infiltrates. Radiographic follow-up is recommended. Diffuse fatty infiltration of the liver. I suspect a 1 cm x 0.93 cm cyst in the right lobe of the liver. Electronically Signed: Ávlaro Chávez MD at 13:49 EST , Service support , Code Visit Inpatient E&M: [id number] Subs Hosp L3
--- NOTE | 2018-12-04 11:40 | PN_ITS ---
Patient Problems: Active and Suspected Problems Atypical pneumonia (Acute) Nonproductive cough (Acute) Chills (Acute) Malaise and fatigue (Acute) Subjective: Patient seen this a.m. appears restless and tremulous. Patient was questioned about alcohol use which he did admit. Patient's girlfriend also reported patient being confused and not making sense. Plans to discharge patient home subsequently discontinued and assessment of acute alcohol withdrawal made patient was started on Librium for medical stabilization. Objective: GENERAL: Patient appears restless and tremulous HEENT: Atraumatic; moist oral mucosa EYES; Anicteric, Normal Conjunctiva NECK; supple, normal thyroid, no distended JVD. RESPIRATORY: Diminished to auscultation bilaterally, CARDIOVASCULAR: Regular S1 S2, no audible murmurs GI: soft, non-tender, normoactive bowel sounds, : No Renal angle tenderness; EXTREMITIES: No edema, no clubbing, no cyanosis. MUSCULOSKELETAL: No Joint Tenderness; no muscle waisting NEURO: Awake; no lateralizing signs. SKIN: No Rash PSYCH; falt affect Vitals/I&O's: Vital Signs Temp Pulse Resp BP Pulse Ox 99.8 F H 79 18 139/80 H 99 12/04/18 05:11 12/04/18 07:15 12/04/18 07:15 12/04/18 05:11 12/04/18 07:15 Oxygen Delivery Method Room Air Weight: 60.1 kg Body Mass Index (BMI) 25.0 Intake and Output for Last 24 Hours 12/02/18 12/03/18 12/04/18 23:59 23:59 23:59 Intake Total 1564 / 1564 7293 / 7293 989 / 989 Balance 1564 / 1564 7293 / 7293 989 / 989 Microbiology Past 72 Hours 12/02/18 23:00 Sputum, Expectorated/Coughed Gram Stain - Final 12/02/18 23:00 Sputum, Expectorated/Coughed Respiratory Culture - Pre liminary Appears to be normal respiratory santiago. Further studies to follow. 12/03/18 09:50 Mucosa - Throat Group A Streptococcus Rapid Screen - Final 12/02/18 16:10 Mucosa - Nasopharyngeal Respiratory Panel (PCR) - Final 12/02/18 12:30 Urine, Clean Catch Legionella Antigen - Final 12/02/18 12:30 Urine, Clean Catch Streptococcus pneumoniae Antigen (M - Final 12/02/18 12:05 Mucosa - Nose Influenza Types A,B Direct FA (ADITYA) - Final Laboratory Results 12/04/18 05:30: Sodium 140, Potassium 3.7, Chloride 108 H, Carbon Dioxide 21.0, Anion Gap 11, BUN 6 L, Creatinine 0.73, Estim Creat Clear Calc 91.54, Est GFR (MDRD) Af Amer 147, Est GFR (MDRD) Non-Af 121, BUN/Creatinine Ratio 8.2 L, Glucose 106, Calcium 7.9 L, Magnesium 2.1 12/04/18 05:30: WBC 6.8, RBC 3.83 L, Hgb 12.7 L, Hct 37.3 L, MCV 97.4 H, MCH 33.2 H, MCHC 34.0, RDW 13.5, RDW Differential 46.5 H, Plt Count 189, MPV 11.1 Current Medications Acetaminophen (Tylenol) 650 mg PO Q6H PRN PRN PRN Reason: Mild Pain (scale 0-3)/T>100.7 Last Admin: 12/03/18 17:08 Dose: 650 mg Acetaminophen (Tylenol) 500 mg PO Q4H PRN PRN PRN Reason: Temp > 100.4 F Al Hydroxide/Mg Hydroxide (Mylanta Ii) 30 ml PO Q6H PRN PRN PRN Reason: dyspesia Albuterol Sulfate (Ventolin Aerosols) 2.5 mg INHALATION Q6HWA.RT [facility] Last Admin: 12/04/18 07:15 Dose: 2.5 mg Chlordiazepoxide (Librium) 0 mg PO [facility]; Taper Stop: 12/07/18 13:44 Dicyclomine HCl (Bentyl) 20 mg PO Q6H PRN PRN PRN Reason: abdominal discomfort Enoxaparin Sodium (Lovenox) 40 mg SC DAILY@0600 [facility] Last Admin: 12/04/18 05:16 Dose: Not Given [facility] ([facility] Acid) [facility] Guaifenesin (Robitussin Dm) 10 ml PO Q6H PRN PRN PRN Reason: COUGH Last Admin: 12/04/18 11:03 Dose: 10 ml Hydroxyzine Pamoate (Vistaril Pamoate Capsule) 50 mg PO Q6H PRN PRN PRN Reason: Mild Anxiety (score 1/3) Ibuprofen (Motrin) 600 mg PO Q8H PRN PRN PRN Reason: Mild-Moderate Pain (1-5/10) Levofloxacin (Levaquin Tablet) 750 mg PO DAILY@0600 [facility] Last Admin: 12/04/18 11:03 Dose: 750 mg Loperamide HCl (Imodium) 4 mg PO Q6H PRN PRN PRN Reason: DIARRHEA Lorazepam (Ativan) 2 mg IV X1 PRN PRN Reason: Seizure Methocarbamol (Methocarbamol) 750 mg PO Q6H PRN PRN PRN Reason: Muscle Aches Multivitamins (Multivitamin) [facility] Nicotine (Nicoderm Cq (Pbkc)) 21 mg TRANSDERM. DAILY [facility] Nutritional Formula (Lactose Free) (Ensure Enlive) 120 ml PO 4X/DAY [facility] Last Admin: 12/04/18 11:03 Dose: 120 ml Ondansetron HCl (Zofran) 4 mg IV Q6H PRN PRN PRN Reason: NAUSEA Ondansetron HCl (Zofran Odt) 4 mg PO Q6H PRN PRN PRN Reason: NAUSEA Oseltamivir Phosphate (Tamiflu) 30 mg PO BID [facility] Stop: 12/07/18 22:01 Last Admin: 12/04/18 10:59 Dose: 30 mg Sodium Chloride () 5 - 15 ml IV UD PRN PRN Reason: SALINE FLUSH Last Admin: 12/03/18 00:13 Dose: 10 ml Thiamine HCl (Vitamin B1) [facility] Trazodone HCl (Desyrel) 50 mg PO QHS [facility] Medical Necessity - Tobacco Use Smoking Status: Former smoker Tobacco Use: Cigarettes Assessment/Plan All Active Problems Atypical pneumonia (Acute) Nonproductive cough (Acute) Chills (Acute) Malaise and fatigue (Acute) Patient is a [age]-year-old gentleman admitted with progressive generalized weakness associated with fever and cough. An assessment of sepsis secondary to bilateral pneumonia was made admitted to regular nursing floor for further management 1. Sepsis secondary to community-acquired pneumonia: Patient has been admitted to a regular nursing floor cultures were sent on admission. Patient placed on IV fluid, antibiotics (Levaquin) as well as supplemental oxygen titrated to keep oxygen saturation greater than 90: Tamiflu was added for suspected influenza pn eumonia. Consultation was also placed to Dr. Armando with infectious disease 2. Acute alcohol withdrawal patient placed on Librium for treatment of his alcohol withdrawal. 3. Dehydration secondary to above on IV fluids with monitoring of electrolyte 4. Hyponatremia on IV fluids with monitoring of electrolytes 5. Diarrhea initially suspected to be secondary to acute viral gastroenteritis treated symptomatically 6. Chronic alcohol abuse counseled on cessation 7. DVT prophylaxis SC Lovenox Active Medications Acetaminophen (Tylenol) 650 mg PO Q6H PRN PRN PRN Reason: Mild Pain (scale 0-3)/T>100.7 Last Admin: 12/03/18 17:08 Dose: 650 mg Acetaminophen (Tylenol) 500 mg PO Q4H PRN PRN PRN Reason: Temp > 100.4 F Al Hydroxide/Mg Hydroxide (Mylanta Ii) 30 ml PO Q6H PRN PRN PRN Reason: dyspesia Albuterol Sulfate (Ventolin Aerosols) 2.5 mg INHALATION Q6HWA.RT [facility] Last Admin: 12/04/18 07:15 Dose: 2.5 mg Chlordiazepoxide (Librium) 0 mg PO [facility]; Taper Stop: 12/07/18 13:44 Dicyclomine HCl (Bentyl) 20 mg PO Q6H PRN PRN PRN Reason: abdominal discomfort Enoxaparin Sodium (Lovenox) 40 mg SC DAILY@0600 [facility] Last Admin: 12/04/18 05:16 Dose: Not Given Folic Acid (Folic Acid) [facility] Guaifenesin (Robitussin Dm) 10 ml PO Q6H PRN PRN PRN Reason: COUGH Last Admin: 12/04/18 11:03 Dose: 10 ml Hydroxyzine Pamoate (Vistaril Pamoate Capsule) 50 mg PO Q6H PRN PRN PRN Reason: Mild Anxiety (score 1/3) Ibuprofen (Motrin) 600 mg PO Q8H PRN PRN PRN Reason: Mild-Moderate Pain (1-5/10) Levofloxacin (Levaquin Tablet) 750 mg PO DAILY@0600 [facility] Last Admin: 12/04/18 11:03 Dose: 750 mg Loperamide HCl (Imodium) 4 mg PO Q6H PRN PRN PRN Reason: DIARRHEA Lorazepam (Ativan) 2 mg IV X1 PRN PRN Reason: Seizure Methocarbamol (Methocarbamol) 750 mg PO Q6H PRN PRN PRN Reason: Muscle Aches Multivitamins (Multivitamin) 1 tablet PO DAILYCM [facility] Nicotine (Nicoderm Cq (Pbkc)) 21 mg TRANSDERM. DAILY [facility] Nutritional Formula (Lactose Free) (Ensure Enlive) 120 ml PO 4X/DAY [facility] Last Admin: 12/04/18 11:03 Dose: 120 ml Ondansetron HCl (Zofran) 4 mg IV Q6H PRN PRN PRN Reason: NAUSEA Ondansetron HCl (Zofran Odt) 4 mg PO Q6H PRN PRN PRN Reason: NAUSEA Oseltamivir Phosphate (Tamiflu) 30 mg PO BID [facility] Stop: 12/07/18 22:01 Last Admin: 12/04/18 10:59 Dose: 30 mg Sodium Chloride () 5 - 15 ml IV UD PRN PRN Reason: SALINE FLUSH Last Admin: 12/03/18 00:13 Dose: 10 ml Thiamine HCl (Vitamin B1) 100 mg PO DAILYCM [facility] Trazodone HCl (Desyrel) 50 mg PO QHS [facility] Clinical Impression(s) from Imaging Studies Chest CT 12/03/18 08:42 IMPRESSION: Multifocal patchy alveolar infiltrates worse in the right upper and right lower lobes. This may represent pneumonic infiltrates. Radiographic follow-up is recommended. Diffuse fatty infiltration of the liver. I suspect a 1 cm x 0.93 cm cyst in the right lobe of the liver. Electronically Signed: Álvaro Chávez MD at 13:49 EST , Service support , Code Visit Inpatient E&M: [id number] Subs Hosp L3
[2018-12-04] MEDS: Acetaminophen 325 MG Tablet 650 MG PO (11:41)
[2018-12-04] MEDS: chlordiazePOXIDE 25 MG Capsule PO ×3 (12:00→23:18)
--- NOTE | 2018-12-04 13:54 | CASEMGMT ---
SW spoke w/pt regarding alcohol use. Pt states drinks 2 beers per day, it is not an issue. Pt states works 12-13 hours/day six days per week. He gets up at 3:30am and is to work at 4am. 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 Pt states his mother two months ago and he was feeling down about that. He states is starting to feel up again however. SW did give pt a list of counseling agencies in the area including the number for hospice for bereavement counseling. No further needs. KRYSTAL Grossman, APPLICATIONS PROJECT MANAGER
--- NOTE | 2018-12-04 13:58 | PCM.HP.ID ---
Problem List (1) Atypical pneumonia Status: Acute Reason for Consult: pneumonia Consulted by: Dr. Thomas History of Present Illness: The patient is a 48 year old M originally from [place] who presented with one week of cough, SOB, fever, not feeling well. No hemoptysis. No h/o TB, but reports hearing about people with it when he was in school. Came to ED, admitted, on levaquin, tamiflu was added. Feeling better, interested in going home so he can get back to work. Reports drinking 2-3 beers a day. Full ROS performed and neg except as noted above. - Medical History Allergies/Adverse Reactions: Allergies No Known Allergies Allergy (Verified 12/02/18 11:31) Home Medications: Ambulatory Orders Medication Instructions Recorded levoFLOXacin tablet [Levaquin 750 mg PO DAILY@0600 #5 tab 12/04/18 tablet] - Social History SMOKING STATUS:: Former smoker Vital Signs Temp Pulse Resp BP Pulse Ox 100.1 F H 84 18 136/91 H 93 12/04/18 12:04 12/04/18 13:54 12/04/18 13:54 12/04/18 12:04 12/04/18 11:00 Oxygen Delivery Method Room Air Weight: 60.1 kg Body Mass Index (BMI) 25.0 Microbiology Past 72 Hours 12/02/18 13:15 Blood Culture - Preliminary Blood Culture (Wb) - Right Hand No growth in 48 hours. 12/02/18 13:15 Blood Culture - Preliminary Blood Culture (Wb) - Anticubital Left No growth in 48 hours. 12/02/18 23:00 Gram Stain - Final Sputum, Expectorated/Coughed Respiratory Culture - Preliminary Appears to be normal respiratory santiago. Further studies to follow. 12/03/18 09:50 Group A Streptococcus Rapid Screen - Final Mucosa - Throat 12/02/18 16:10 Respiratory Panel (PCR) - Final Mucosa - Nasopharyngeal 12/02/18 12:30 Legionella Antigen - Final Urine, Clean Catch 12/02/18 12:30 Streptococcus pneumoniae Antigen (M - Final Urine, Clean Catch 12/02/18 12:05 Influenza Types A,B Direct FA (ADITYA) - Final Mucosa - Nose Laboratory Tests Past 24 Hrs 12/04/18 12/04/18 05:30 05:30 WBC 6.8 RBC 3.83 L Hgb 12.7 L Hct 37.3 L MCV 97.4 H MCH 33.2 H MCHC 34.0 RDW 13.5 RDW Differential 46.5 H Plt Count 189 MPV 11.1 Sodium 140 Potassium 3.7 Chloride 108 H Carbon Dioxide 21.0 Anion Gap 11 BUN 6 L Creatinine 0.73 Estim Creat Clear Calc 91.54 Est GFR (MDRD) Af Amer 147 Est GFR (MDRD) Non-Af 121 BUN/Creatinine Ratio 8.2 L Glucose 106 Calcium 7.9 L Magnesium 2.1 - Other Studies Radiology: [] reviewed Other Studies: [] Route of nutrition/ use of supplements: [] Nutritional Intake: [] IV Site: [] Yost Catheter: [] - Physical Exam General: Alert, Oriented x3, Cooperative, No apparent distress HEENT: Atraumatic, PERRLA, EOMI Neck: Supple, No Nodes Lungs: Rhonchi - moreso in SHAILA Cardiovascular: Regular rate, Regular Rhythm Abdomen: Soft, Non Tender, Non-Distended Extremities: No edema Skin: No rashes IV Site: Peripheral Musculoskeletal: No Tenderness to Palpation of Joints or Extremities Neurological: Cranial nerves II-XII grossly intact, - - shakey - Assessment/Plan Antibiotics: [] Assessment/Plan: [] Active and Suspected Problems Atypical pneumonia (Acute) Nonproductive cough (Acute) Chills (Acute) Malaise and fatigue (Acute) sepsis (fever, tachycardia) due to CAP - feeling better, continue levaquin for 5 day course. Stop tamiflu, resp viral pcr was neg. Denies hemoptysis or body aches. D/c droplet isolation. Will follow, thank you, d/w business case analyst.
[2018-12-04] MEDS: Ibuprofen 600 MG Tablet PO (15:12)
[2018-12-04] MEDS: hydrOXYzine PAM 25 MG Capsule 50 MG PO ×2 (15:12→22:41)
[2018-12-04] MEDS: Acetaminophen 500 MG Tablet PO (18:22)
[2018-12-04] MEDS: Methocarbamol 750 MG Tablet PO (18:22)
--- NOTE | 2018-12-04 18:40 | NURSING ---
PT WALKED OUT OF HIS ROOM AND TRIED TO OPEN DOOR TO THE STEPS AND ALARM WENT OFF AND THIS RN SAW THE PT GOING BACK INTO HIS ROOM- WENT IN AND TALKED TO PT AND HE WAS WANTING TO SMOKE AND TOLD PT NOT ALLOWED TO SMOKE AT THE HOSPITAL- PT REORIENTED TO HOSPITAL AND SAID HE KNEW HE WAS AT THE HOSPITAL BUT HE KEEPS TALKING ABOUT THE FIRST FLOOR AND THIS RN REMINDS HIM THAT HE IS [address]N [address] AND HE LOOKS AT HIS ROOM NUMBER UP ON THE BOARD- CALLED PHARMACY TO GET PATCH. ASKED PT IF HE HAD ANY CIGARETTES AND HE SAID THAT THEY WERE IN HIS LUNCH BOX- HE SAID HE SMOKES ONE CIGARETTE A DAY..... REMINDED PT THAT DOOR ALARM WILL GO OFF AGAIN IF HE TRIES TO OPEN THE DOOR AND HE LAUGHED AND SAID I KNOW ALEXANDER DIAZ RN OF [employer]ING AIDE INFORMED---- KATHIA AWARE ALSO
--- NOTE | 2018-12-04 19:30 | NURSING ---
MS3 locked down at this time d/t patient attempting to leave via Fire stairwell and back surgery elevators. Redirected to his room. Tremors noted, patient also rambling at times, unable to understand words. Will complete assessment and contact MD.
[2018-12-04] MEDS: LORazepam 2 MG/ML Syringe IM ×2 (20:03→21:31)
--- NOTE | 2018-12-04 20:25 | NURSING ---
Last 15 minutes have been spent in room with patient with acid regenerator IPAD to assist with communication with the patient. Patient pacing, sweating, rambling at times, attempted to plug phone car dumper into floor, trying to open windows and is in the rooms cupboards going through. The patient previously could communicate in [place] without an acid regenerator. The acid regenerator reports the patient denies pain and hallucinations. 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 The acid regenerator reports that the patient's sentences are scattered and not well connected--His conversation will stray to events that happened in past months, back to his mother passing away 2 months ago. Patient reports drinking only beer, no liquor, no drug use. The acid regenerator states he says about 3 beers a day. With use of the acid regenerator I explained to the patient that I would be putting an IV in his arm for medicine, and the importance of staying in his room and trying to rest. Gas Generator Operator reports patient verbalized understanding. While this RN at nurse desk outside of 305 patient has since come out of his room and is pacing the hallways. Redirected to his room, will continue to monitor.
--- NOTE | 2018-12-04 21:00 | NURSING ---
Patient pacing hallway. Pushing a vital machine with him. He is also dragging his phone paper stripper. Patient redirected to room at this time. Explanation again of his safety and need for him to stay in room. 2nd dose of 2mg IM ativan not due at this time. No further PRNs available, will monitor. outcomes manager and CONTENT STRATEGIST updated for frequent rounding.
[2018-12-04] MEDS: traZODone 50 MG Tablet PO (21:31)
--- NOTE | 2018-12-04 21:34 | NURSING ---
Patient remains pacing hallways and entering other patient's room. Rambling about work. Once back to room, patient got out cell phone and is observed to enter a random assortment of numbers and attempt to call/text the random number without success. The patient is cooperative with staff. IM ativan per Dr. Downey order to be given now. service desk technician and radiology supervisor feel it is unsafe to insert another IV d/t prior tampering with IV. Will unitize the CIWA ativan taper.
--- NOTE | 2018-12-04 22:05 | NURSING ---
EDUCATIONAL INTERPRETER reported to this RN that she found patient with both hands in the sharps container in his room. This RN instructed EDUCATIONAL INTERPRETER to removed all objects from room that could cause potential for self harm.
--- NOTE | 2018-12-04 22:20 | NURSING ---
Patient attempted to go down fire stairwell. Staff ran to patient who found him carrying a trash can down the hallway, running. Redirected to room for safety.
[2018-12-04] MEDS: LORazepam 1 MG Tablet 2 MG PO (22:41)
--- NOTE | 2018-12-04 22:59 | NURSING ---
Use of science interpreter @ this time with patient for a 10m discussion. Incising Machine Operator again reports patient is not forming coherent sentences. The purpose of this call was to determine if the patient was intending harm for himself. The science interpreter was unable to get patient to answer. He is disoriented greater than 2 days. Incising Machine Operator was used to instruct patient on safety measures and ask him to remain in his room and out of other patient's rooms. This RN remains at bedside with patient. Patient is observed to be looking under furniture and searching for an unknown object, crawling on floor at times, only Scottish words repeated are work and children. Patient holding bed linens, wringing and trying to wrip. His hands are constantly moving and grabbing at any objects he can touch/pull. Very tremulous. Sweating through clothing. This RN also walking hallways with patient. scientific informatics project leader and Collar Setter remain aware, agree IV access @ this point may be dangerous as patient had previously tampered with IV and because he may rip it out. PO ativan per CIWA protocol was given. Librium to be given as scheduled.
--- NOTE | 2018-12-04 23:45 | NURSING ---
Addendum entered by Karol Prasad 12/05/18 00:50: Please note alternatives attempted prior to restraint application: Redirection, unable to redirect patient from another patient's room, multiple instances of roaming hallways. Explanation, an conference interpreter IPAD was used and safety measures explained to patient. Sitter, This RN sat at the bedside with patient who continued to attempt to leave room. Distraction: Food, TV, and cell phone. Physiological Needs: Finger foods and drinks provided, denies need for bathroom. Ambulation was also provided. Verbal deescalation attempted when patient brought into room with 3 staff members and this also was unsuccessful. Original Note: Patient attempting to enter another patient's room on floor. MD dunn, wood preparation supervisor called. Redirection unsuccessful, patient began pushing at staff attempting to get into other patient's room. With assist of 3 staff members patient brought back into his room. Once in room patient attempting to leave room again, 3 staff members remained with him. Allowed patient to pace in room, very unsteady on his feet. Patient rambling. The patient was not cooperative with staff to sit in bed. returned page at this time. He would like soft restraints placed for patient safety and IV ativan given now per protocol. Patient lifted into bed with 4 staff members and restraints applied. IV access obtained. IV ativan given. This RN remains sitting @ bedside, patient restless and fighting against restraints at this time.
[2018-12-04] MEDS: LORazepam 2 MG/ML Syringe IV (23:47)
[2018-12-04] MEDS: 0.9% NaCl Peripheral Flush Adult/Peds IV (23:47)
[2018-12-05] VITALS (15 sets, daily range): BP systolic 122–147; BP diastolic 78–96; PULSE 69–98; RESP 16–40; TEMP 36.4–37.4; O2SAT 96–99
[2018-12-05] MEDS: LORazepam 2 MG/ML Syringe IV (04:37)
[2018-12-05] MEDS: 0.9% NaCl Peripheral Flush Adult/Peds IV (04:42)
[2018-12-05] MEDS: levoFLOXacin 750 MG Tablet PO (05:03)
[2018-12-05] MEDS: Methocarbamol 750 MG Tablet PO (05:03)
[2018-12-05] MEDS: chlordiazePOXIDE 25 MG Capsule PO ×3 (05:03→22:23)
[2018-12-05] MEDS: guaiFENesin Dm 10 ML UDC PO ×3 (05:27→22:29)
--- NOTE | 2018-12-05 07:28 | PCM.PN.HOSP ---
Patient Problems: Active and Suspected Problems Atypical pneumonia (Acute) Nonproductive cough (Acute) Chills (Acute) Malaise and fatigue (Acute) Subjective: Patient seen currently in full-blown delirium tremens. Patient is restless delirious and tremulous at rest. Currently being managed with Librium using the [facility] medical stabilization protocol Objective: GENERAL: Patient appears restless and tremulous HEENT: Atraumatic; EYES; Anicteric, Normal Conjunctiva NECK; supple, normal thyroid, RESPIRATORY: Diminished to auscultation bilaterally, CARDIOVASCULAR: Regular S1 S2, no audible murmurs GI: soft, non-tender, normoactive bowel sounds, : No Renal angle tenderness; EXTREMITIES: No edema, no clubbing, no cyanosis. NEURO: Awake; no lateralizing signs. SKIN: No Rash PSYCH; delirious Vitals/I&O's: Vital Signs Temp Pulse Resp BP Pulse Ox 97.8 F 98 16 146/96 H 99 12/05/18 04:30 12/05/18 04:30 12/05/18 04:30 12/05/18 04:30 12/05/18 03:45 Oxygen Delivery Method Room Air Weight: 60.1 kg Body Mass Index (BMI) 25.0 Intake and Output for Last 24 Hours 12/03/18 12/04/18 12/05/18 23:59 23:59 23:59 Intake Total 7293 / 7293 1809 / 1809 200 / 200 Balance 7293 / 7293 1809 / 1809 200 / 200 Microbiology Past 72 Hours 12/02/18 13:15 Blood Culture (Wb) - Right Hand Blood Culture - Preliminary No growth in 48 hours. 12/02/18 13:15 Blood Culture (Wb) - Anticubital Left Blood Culture - Preliminary No growth in 48 hours. 12/02/18 23:00 Sputum, Expectorated/Coughed Gram Stain - Final 12/02/18 23:00 Sputum, Expectorated/Coughed Respiratory Culture - Preliminary Appears to be normal respiratory santiago. Further studies to follow. 12/03/18 09:50 Mucosa - Throat Group A Streptococcus Rapid Screen - Final 12/02/18 16:10 Mucosa - Nasopharyngeal Respiratory Panel (PCR) - Final 12/02/18 12:30 Urine, Clean Catch Legionella Antigen - Final 12/02/18 12:30 Urine, Clean Catch Streptococcus pneumoniae Antigen (M - Final 12/02/18 12:05 Mucosa - Nose Influenza Types A,B Direct FA (ADITYA) - Final Current Medications Acetaminophen (Tylenol) 500 mg PO Q4H PRN PRN PRN Reason: Temp > 100.4 F Last Admin: 12/04/18 18:22 Dose: 500 mg Al Hydroxide/Mg Hydroxide (Mylanta Ii) 30 ml PO Q6H PRN PRN PRN Reason: dyspesia Albuterol Sulfate (Ventolin Aerosols) 2.5 mg INHALATION Q6HWA.RT [facility] Last Admin: 12/04/18 20:25 Dose: Not Given Chlordiazepoxide (Librium) 50 mg PO Q8H [facility]; Taper Stop: 12/07/18 13:44 Last Admin: 12/05/18 05:03 Dose: 50 mg Dicyclomine HCl (Bentyl) 20 mg PO Q6H PRN PRN PRN Reason: abdominal discomfort Enoxaparin Sodium (Lovenox) 40 mg SC DAILY@0600 [facility] Last Admin: 12/05/18 05:11 Dose: Not Given Folic Acid (Folic Acid) [facility] Guaifenesin (Robitussin Dm) 10 ml PO Q6H PRN PRN PRN Reason: COUGH Last Admin: 12/05/18 05:27 Dose: 10 ml Hydroxyzine Pamoate (Vistaril Pamoate Capsule) 50 mg PO Q6H PRN PRN PRN Reason: Mild Anxiety (score 1/3) Last Admin: 12/04/18 22:41 Dose: 50 mg Ibuprofen (Motrin) 600 mg PO Q8H PRN PRN PRN Reason: Mild-Moderate Pain (1-5/10) Last Admin: 12/04/18 15:12 Dose: 600 mg Levofloxacin (Levaquin Tablet) 750 mg PO DAILY@0600 [facility] Last Admin: 12/05/18 05:03 Dose: 750 mg Loperamide HCl (Imodium) 4 mg PO Q6H PRN PRN PRN Reason: DIARRHEA Lorazepam (Ativan) 2 mg IV X1 PRN PRN Reason: Seizure Lorazepam (Ativan) 2 mg PO Q2H PRN PRN; Protocol PRN Reason: CIWA score > 8 but <15 Lorazepam (Ativan) 2 mg PO UD PRN; Protocol PRN Reason: CIWA score >/=15. Last Admin: 12/04/18 22:41 Dose: 2 mg Lorazepam (Ativan) 2 mg IV Q2H PRN PRN; Protocol PRN Reason: CIWA score > 8 but <15 Lorazepam (Ativan) 2 mg IV UD PRN; Protocol PRN Reason: CIWA score >/=15. Last Admin: 12/05/18 04:37 Dose: 2 mg Methocarbamol (Methocarbamol) 750 mg PO Q6H PRN PRN PRN Reason: Muscle Aches Last Admin: 12/05/18 05:03 Dose: 750 mg Multivitamins (Multivitamin) [facility] Nicotine (Nicoderm Cq (Pbkc)) 21 mg TRANSDERM. DAILY [facility] Last Admin: 12/04/18 20:09 Dose: 21 mg Nutritional Formula (Lactose Free) (Ensure Enlive) 120 ml PO 4X/DAY [facility] Last Admin: 12/04/18 21:31 Dose: Not Given Ondansetron HCl (Zofran) 4 mg IV Q6H PRN PRN PRN Reason: NAUSEA Ondansetron HCl (Zofran Odt) 4 mg PO Q6H PRN PRN PRN Reason: NAUSEA Sodium Chloride () 5 - 15 ml IV UD PRN PRN Reason: SALINE FLUSH Last Admin: 12/05/18 04:42 Dose: 10 ml Thiamine HCl (Vitamin B1) [facility] Trazodone HCl (Desyrel) 50 mg PO QHS [facility] Last Admin: 12/04/18 21:31 Dose: 50 mg Medical Necessity - Tobacco Use Smoking Status: Former smoker Tobacco Use: Cigarettes Assessment/Plan All Active Problems Atypical pneumonia (Acute) Nonproductive cough (Acute) Chills (Acute) Malaise and fatigue (Acute) Patient is a [age]-year-old gentleman admitted with progressive generalized weakness associated with fever and cough. An assessment of sepsis secondary to bilateral pneumonia was made admitted to regular nursing floor for further management 1. Sepsis secondary to community-acquired pneumonia: Patient has been admitted to a regular nursing floor cultures were sent on admission. Patient placed on IV fluid, antibiotics (Levaquin) as well as supplemental oxygen titrated to keep oxygen saturation greater than 90: Tamiflu was added for suspected influenza pneumonia discontinued on 12/04/2018. Consultation was also placed to Dr. Armando with infectious disease 2. Acute alcohol withdrawal patient placed on Librium for treatment of his alcohol withdrawal. Patient is in full-blown delirium tremens as of 12/05/2018 3. Dehydration secondary to above on IV fluids with monitoring of electrolyte 4. Hyponatremia on IV fluids with monitoring of electrolytes: Resolved 5. Diarrhea initially suspected to be secondary to acute viral gastroenteritis treated symptomatically 6. Chronic alcohol abuse counseled on cessation 7. DVT prophylaxis SC Lovenox 2. Fatty liver from chronic alcohol use Code Visit Inpatient E&M: 21704 Subs Hosp L3
[2018-12-05] MEDS: Albuterol 2.5 MG/3 ML VIAL.NEB. INHALATION ×2 (07:51→13:27)
[2018-12-05 08:23] LABS: Hematocrit 38.8 % (40-54); Hemoglobin 12.9 g/dl (13.0-16.5); Mean Corp Hgb Conc 33.2 g/gl (32-36); Mean Corpuscular Hgb 32.5 pg (27.0-32.0); Mean Corpuscular Volume 97.7 fL (80-94); Mean Platelet Vol. 10.8 fl (6.2-12.0); Platelet Count 250 K/mm3 (150-450); RBC Distribution Width CV 13.8 % (11.6-14.6); RBC Distribution Width SD 49.6 fl (35.1-43.9); Red Blood Count 3.97 M/mm3 (4.6-6.2); Scan Indicated on CBC? Y/N NO
[2018-12-05] MEDS: Multivitamins,Therapeutic Tablet 1 TABLET PO (08:35)
[2018-12-05] MEDS: Folic Acid 1 MG Tablet PO (08:35)
[2018-12-05] MEDS: Thiamine Hydrochloride 100 MG Tablet PO (08:35)
[2018-12-05] MEDS: LORazepam 1 MG Tablet 2 MG PO ×2 (08:36→13:59)
[2018-12-05 08:44] LABS: Anion Gap 11 (5-15); BUN 9 mg/dL (7-18); BUN/Creat Ratio 12.8 RATIO (10-20); Calcium,Total 8.8 mg/dL (8.5-10.1); Chloride 111 mmol/L (98-107); EST Glomerular Filtration Rate 127 mL/min (>60); Est Glom Filt Rate - Afr Amer 154 mL/min (>60); Estimated Creatinine Clearance 95.47 ml/min; Glucose 105 mg/dL (74-106); Potassium 3.9 mmol/L (3.5-5.1); Sodium Level 144 mmol/L (136-145)
[2018-12-05] MEDS: traZODone 50 MG Tablet PO (22:24)
[2018-12-05] MEDS: Ibuprofen 600 MG Tablet PO (22:29)
[2018-12-06] VITALS (17 sets, daily range): BP systolic 97–131; BP diastolic 61–88; PULSE 73–102; RESP 16–32; TEMP 36.6–37.1; O2SAT 93–96
[2018-12-06] MEDS: chlordiazePOXIDE 25 MG Capsule PO ×2 (05:31→13:37)
[2018-12-06] MEDS: levoFLOXacin 750 MG Tablet PO (05:36)
[2018-12-06] MEDS: Albuterol 2.5 MG/3 ML VIAL.NEB. INHALATION ×3 (06:41→23:00)
[2018-12-06 07:21] LABS: Anion Gap 12 (5-15); BUN 8 mg/dL (7-18); BUN/Creat Ratio 10.8 RATIO (10-20); Calcium,Total 8.9 mg/dL (8.5-10.1); Chloride 111 mmol/L (98-107); Creatinine, Serum 0.74 mg/dL (0.70-1.30); EST Glomerular Filtration Rate 119 mL/min (>60); Est Glom Filt Rate - Afr Amer 144 mL/min (>60); Estimated Creatinine Clearance 90.31 ml/min; Glucose 92 mg/dL (74-106); Potassium 3.2 mmol/L (3.5-5.1); Sodium Level 145 mmol/L (136-145)
--- NOTE | 2018-12-06 07:37 | PCM.PN.HOSP ---
Patient Problems: Active and Suspected Problems Nonproductive cough (Acute) Chills (Acute) Malaise and fatigue (Acute) Subjective: Patient seen still remains lethargic. BMP significant for potassium of 3.2 correction of hypokalemia initiated Objective: GENERAL: Patient appears restless and tremulous HEENT: Atraumatic; EYES; Anicteric, Normal Conjunctiva NECK; supple, normal thyroid, RESPIRATORY: Diminished to auscultation bilaterally, CARDIOVASCULAR: Regular S1 S2, no audible murmurs GI: soft, non-tender, normoactive bowel sounds, : No Renal angle tenderness; EXTREMITIES: No edema, no clubbing, no cyanosis. NEURO: Awake; no lateralizing signs. SKIN: No Rash PSYCH; delirious Vitals/I&O's: Vital Signs Temp Pulse Resp BP Pulse Ox 97.9 F 78 16 126/78 H 95 12/06/18 05:37 12/06/18 06:41 12/06/18 06:41 12/06/18 05:37 12/06/18 06:41 Oxygen Delivery Method Room Air Weight: 60.1 kg Body Mass Index (BMI) 25.0 Intake and Output for Last 24 Hours 12/04/18 12/05/18 12/06/18 23:59 23:59 23:59 Intake Total 1809 / 1809 200 / 200 220 / 220 Output Total 750 / 750 Balance 1809 / 1809 200 / 200 -530 / -530 Microbiology Past 72 Hours 12/03/18 09:50 Mucosa - Throat Throat Culture - Final 12/02/18 23:00 Sputum, Expectorated/Coughed Gram Stain - Final 12/02/18 23:00 Sputum, Expectorated/Coughed Respiratory Culture - Final Mixed normal respiratory santiago. No Haemophilus, Streptococcus pneumoniae, beta-hemolytic Streptococcus or Staphylococcus aureus isolated. 12/02/18 13:15 Blood Culture (Wb) - Right Hand Blood Culture - Preliminary No growth in 48 hours. 12/02/18 13:15 Blood Culture (Wb) - Anticubital Left Blood Culture - Preliminary No growth in 48 hours. 12/03/18 09:50 Mucosa - Throat Group A Streptococcus Rapid Screen - Final 12/02/18 16:10 Mucosa - Nasopharyngeal Respiratory Panel (PCR) - Final Laboratory Results 12/05/18 07:51: Sodium 144, Potassium 3.9, Chloride 111 H, Carbon Dioxide 22.0, Anion Gap 11, BUN 9, Creatinine 0.70, Estim Creat Clear Calc 95.47, Est GFR (MDRD) Af Amer 154, Est GFR (MDRD) Non-Af 127, BUN/Creatinine Ratio 12.8, Glucose 105, Calcium 8.8 12/05/18 07:51: WBC 7.0, RBC 3.97 L, Hgb 12.9 L, Hct 38.8 L, MCV 97.7 H, MCH 32.5 H, MCHC 33.2, RDW 13.8, RDW Differential 49.6 H, Plt Count 250, MPV 10.8 12/06/18 05:45: Sodium 145, Potassium 3.2 L, Chloride 111 H, Carbon Dioxide 22.0, Anion Gap 12, BUN 8, Creatinine 0.74, Estim Creat Clear Calc 90.31, Est GFR (MDRD) Af Amer 144, Est GFR (MDRD) Non-Af 119, BUN/Creatinine Ratio 10.8, Glucose 92, Calcium 8.9 Current Medications Acetaminophen (Tylenol) 500 mg PO Q4H PRN PRN PRN Reason: Temp > 100.4 F Last Admin: 12/04/18 18:22 Dose: 500 mg Al Hydroxide/Mg Hydroxide (Mylanta Ii) 30 ml PO Q6H PRN PRN PRN Reason: dyspesia Albuterol Sulfate (Ventolin Aerosols) 2.5 mg INHALATION Q6HWA.RT [facility] Last Admin: 12/06/18 06:41 Dose: 2.5 mg Chlordiazepoxide (Librium) 50 mg PO Q8H [facility]; Taper Stop: 12/07/18 13:44 Last Admin: 12/06/18 05:31 Dose: 50 mg Dicyclomine HCl (Bentyl) 20 mg PO Q6H PRN PRN PRN Reason: abdominal discomfort Enoxaparin Sodium (Lovenox) 40 mg SC DAILY@0600 [facility] Last Admin: 12/06/18 06:42 Dose: Not Given Folic Acid ([facility] Acid) [facility] Last Admin: 12/05/18 08:35 Dose: 1 mg Guaifenesin (Robitussin Dm) 10 ml PO Q6H PRN PRN PRN Reason: COUGH Last Admin: 12/05/18 22:29 Dose: 10 ml Hydroxyzine Pamoate (Vistaril Pamoate Capsule) 50 mg PO Q6H PRN PRN PRN Reason: Mild Anxiety (score 1/3) Last Admin: 12/04/18 22:41 Dose: 50 mg Ibuprofen (Motrin) 600 mg PO Q8H PRN PRN PRN Reason: Mild-Moderate Pain (1-5/10) Last Admin: 12/05/18 22:29 Dose: 600 mg Levofloxacin (Levaquin Tablet) 750 mg PO DAILY@0600 [facility] Last Admin: 12/06/18 05:36 Dose: 750 mg Loperamide HCl (Imodium) 4 mg PO Q6H PRN PRN PRN Reason: DIARRHEA Lorazepam (Ativan) 2 mg IV X1 PRN PRN Reason: Seizure Lorazepam (Ativan) 2 mg PO Q2H PRN PRN; Protocol PRN Reason: CIWA score > 8 but <15 Last Admin: 12/05/18 13:59 Dose: 2 mg Lorazepam (Ativan) 2 mg PO UD PRN; Protocol PRN Reason: CIWA score >/=15. Last Admin: 12/04/18 22:41 Dose: 2 mg Lorazepam (Ativan) 2 mg IV Q2H PRN PRN; Protocol PRN Reason: CIWA score > 8 but <15 Lorazepam (Ativan) 2 mg IV UD PRN; Protocol PRN Reason: CIWA score >/=15. Last Admin: 12/05/18 04:37 Dose: 2 mg Methocarbamol (Methocarbamol) 750 mg PO Q6H PRN PRN PRN Reason: Muscle Aches Last Admin: 12/05/18 05:03 Dose: 750 mg Multivitamins (Multivitamin) [facility] Last Admin: 12/05/18 08:35 Dose: 1 tablet Nicotine (Nicoderm Cq (Pbkc)) 21 mg TRANSDERM. DAILY [facility] Last Admin: 12/05/18 14:00 Dose: 21 mg Nutritional Formula (Lactose Free) (Ensure Enlive) 120 ml PO 4X/DAY [facility] Last Admin: 12/05/18 22:24 Dose: 120 ml Ondansetron HCl (Zofran) 4 mg IV Q6H PRN PRN PRN Reason: NAUSEA Ondansetron HCl (Zofran Odt) 4 mg PO Q6H PRN PRN PRN Reason: NAUSEA Potassium Chloride (K-Dur) [facility] Sodium Chloride () 5 - 15 ml IV UD PRN PRN Reason: SALINE FLUSH Last Admin: 12/05/18 04:42 Dose: 10 ml Thiamine HCl (Vitamin B1) 100 mg PO DAILYCM [facility] Last Admin: 12/05/18 08:35 Dose: 100 mg Trazodone HCl (Desyrel) 50 mg PO QHS [facility] Last Admin: 12/05/18 22:24 Dose: 50 mg Medical Necessity - Tobacco Use Smoking Status: Former smoker Tobacco Use: Cigarettes Assessment/Plan All Active Problems Atypical pneumonia (Acute) Nonproductive cough (Acute) Chills (Acute) Malaise and fatigue (Acute) Patient is a 48-year-old gentleman admitted with progressive generalized weakness associated with fever and cough. An assessment of sepsis secondary to bilateral pneumonia was made admitted to regular nursing floor for further management plan was for patient to have been discharged home on the morning of 12/04/2018 however patient's girlfriend noticed patient to be significantly delirious. Patient was also noted to be tremulous. An assessment of acute alcohol withdrawal was made, discharge discontinued, patient started on the medical stabilization protocol using Librium. 1. Sepsis secondary to community-acquired pneumonia: Patient has been admitted to a regular nursing floor cultures were sent on admission. Patient placed on IV fluid, antibiotics (Levaquin) as well as supplemental oxygen titrated to keep oxygen saturation greater than 90: Tamiflu was added for suspected influenza pneumonia discontinued on 12/04/2018. Consultation was also placed to Dr. Armando with infectious disease 2. Acute alcohol withdrawal patient placed on Librium for treatment of his alcohol withdrawal. Patient is in full-blown delirium tremens as of 12/05/2018 3. Dehydration secondary to above on IV fluids with monitoring of electrolyte 4. Hyponatremia on IV fluids with monitoring of electrolytes: Resolved 5. Diarrhea initially suspected to be secondary to acute viral gastroenteritis treated symptomatically 6. Chronic alcohol abuse counseled on cessation 7. DVT prophylaxis SC Lovenox 8. Fatty liver from chronic alcohol use 9. Hypokalemia corrected per protocol Code Visit Inpatient E&M: 18807 Subs Hosp L2
[2018-12-06] MEDS: Thiamine Hydrochloride 100 MG Tablet PO (08:45)
[2018-12-06] MEDS: Folic Acid 1 MG Tablet PO (08:45)
[2018-12-06] MEDS: Multivitamins,Therapeutic Tablet 1 TABLET PO (08:46)
[2018-12-06] MEDS: hydrOXYzine PAM 25 MG Capsule 50 MG PO (09:00)
[2018-12-06] MEDS: guaiFENesin Dm 10 ML UDC PO (18:22)
[2018-12-06] MEDS: Ibuprofen 600 MG Tablet PO (18:31)
[2018-12-06] MEDS: traZODone 50 MG Tablet PO (22:04)
[2018-12-07] VITALS (10 sets, daily range): BP systolic 110–120; BP diastolic 70–87; PULSE 82–100; RESP 16–20; TEMP 36.3–37.7; O2SAT 94–99
[2018-12-07] MEDS: chlordiazePOXIDE 25 MG Capsule PO (00:50)
[2018-12-07] MEDS: levoFLOXacin 750 MG Tablet PO (06:14)
[2018-12-07] MEDS: Albuterol 2.5 MG/3 ML VIAL.NEB. INHALATION (06:51)
--- NOTE | 2018-12-07 08:21 | NURSING ---
PT RESTING QUIETLY IN BED, EYES CLOSED, RESP EASY
--- NOTE | 2018-12-07 09:55 | RAD_ITS ---
STUDY: X-RAY CHEST REASON FOR EXAM: Male, 48 years old. Dyspnea/shortness of breath. TECHNIQUE: Single AP portable view of the chest. COMPARISON: Comparison is made with prior study dated December 03, 2018. FINDINGS: Since prior study, there has been improved aeration of both lungs. Residual bilateral infiltrates are seen. Further follow-up is recommended. There is no demonstrated pleural abnormality. Normal size heart. Normal mediastinum and ericka. Normal visualized pulmonary arteries. Normal visualized aortic arch and descending thoracic aorta. There are degenerative changes of the visualized thoracic spine. Normal visualized ribs, clavicles, and shoulders. There is no demonstrated abnormality of the visualized soft tissue structures of the upper abdomen. RAD/Chest 1 View (Portable) IMPRESSION: Improved aeration as compared to prior study. Residual patchy infiltrates persist. Further follow-up is recommended. Electronically Signed: Álvaro Chávez MD at 12:52 EST , Service support ,
--- NOTE | 2018-12-07 13:54 | PCM.PN.ID ---
Patient Problems: Active and Suspected Problems Nonproductive cough (Acute) Chills (Acute) Malaise and fatigue (Acute) Subjective: Denies cough or SOB. No fever. - Physical Exam General: Cooperative, No apparent distress, Lethargic Lungs: Clear to auscultation, Normal air movement Cardiovascular: Regular rate, Regular Rhythm Abdomen: Soft, Non Tender, Non-Distended Skin: No rashes Vital Signs Temp Pulse Resp BP Pulse Ox 98.7 F 100 18 120/83 H 96 12/07/18 13:52 12/07/18 13:52 12/07/18 13:52 12/07/18 13:52 12/07/18 13:52 Oxygen Delivery Method Room Air Weight: 60.1 kg Body Mass Index (BMI) 25.0 Intake and Output for Last 24 Hours 12/05/18 12/06/18 12/07/18 23:59 23:59 23:59 Intake Total 200 / 200 1830 / 1830 150 / 150 Output Total 750 / 750 Balance 200 / 200 1080 / 1080 150 / 150 Microbiology Past 72 Hours 12/02/18 13:15 Blood Culture - Final Blood Culture (Wb) - Right Hand No growth in 5 days. 12/02/18 13:15 Blood Culture - Final Blood Culture (Wb) - Anticubital Left No growth in 5 days. 12/03/18 09:50 Throat Culture - Final Mucosa - Throat 12/02/18 23:00 Gram Stain - Final Sputum, Expectorated/Coughed Respiratory Culture - Final Mixed normal respiratory santiago. No Haemophilus, Streptococcus pneumoniae, beta-hemolytic Streptococcus or Staphylococcus aureus isolated. Medical Necessity - Tobacco Use Smoking Status: Former smoker Tobacco Use: Cigarettes Route of nutrition/ use of supplements: [] Nutritional Intake: [] IV Site: [] Yost Catheter: [] - Assessment/Plan Antibiotics: [] Assessment/Plan: [] Active and Suspected Problems Atypical pneumonia (Acute) Nonproductive cough (Acute) Chills (Acute) Malaise and fatigue (Acute) sepsis (fever, tachycardia) due to CAP - feeling better, exam improved. Cxr still with some bilateral infiltrates. Ok to go home off abx with follow-up outpt xray in a few weeks. etoh withdrawal - improving Will follow, d/w Dr. Munoz
--- NOTE | 2018-12-07 14:07 | NURSING ---
PT AMBULATED ENTIRE LENGTH OF UNIT. PULSE OX 92-94% ON RA. DENIES SOB/C.P.
--- NOTE | 2018-12-07 14:11 | PCM.CONS.GEN ---
Problem List (1) Atypical pneumonia Status: Acute (2) Nonproductive cough Status: Acute (3) Chills Status: Acute (4) Malaise and fatigue Status: Acute Reason for Consult Date of Consultation: 12/07/18 Reason for Consultation: Pneumonia, abnormal chest x-ray History of Present Illness: The patient is a 48 year old M, with no reported past medical history, who presented to [facility] on 12/02/2018 secondary to fever, chills and nonproductive cough over the last week. Patient did also reported some diarrhea over the last 48 hours. Patient had denied any hemoptysis, dysuria, hematuria or trauma at that time. Patient states that he had some generalized muscle aching that he thought was secondary to persistent coughing. On initial presentation, patient was febrile to 103.2 with slightly elevated creatinine at 1.65. Patient was admitted to the floor and initiated on Levaquin therapy. Over the course of patient's hospitalization he feels that he has improved. Patient has been seen by infectious disease. Patient's repeat chest x-ray showed persistent infiltrates, so I was asked to see the patient. Patient states his cough is improved, but readily admits that he is not been out of bed much since being admitted. Patient does report cramping of his feet and calves that he attributes to being in bed. Patient denies ever having been in the hospital previously for breathing complications. Patient reports he has been in the [place] for approximately 18 years. Patient denies any travel history. Patient did smoke for 5 years, but states he quit some time ago. Patient denies any history of asthma or COPD. Patient is never been admitted to the hospital that he is aware of previously. Patient does report drinking 2-4 beers per day, but denies any aspiration events. Patient denies any IV drug use. Patient has no history of trauma or inhalation injury. 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 Review of systems otherwise negative x10 systems. Past Medical History Allergies No Known Allergies Allergy (Verified 12/02/18 11:31) Home Medications: Ambulatory Orders Medication Instructions Recorded levoFLOXacin tablet [Levaquin 750 mg PO DAILY@0600 #5 tab 12/04/18 tablet] Surgical History: no surgical history Psychiatric History: No pertinent psych hx Lives: Spouse/ Significant Other Smoking Status: Former smoker Tobacco Use: Cigarettes Alcohol: Occasional Drugs: None - *Family History Maternal History Items: No pertinent history Paternal History Items: No pertinent history Review of Systems Comment: See HPI, otherwise negative x10 systems Patient Problems: Active and Suspected Problems Nonproductive cough (Acute) Chills (Acute) Malaise and fatigue (Acute) Objective: All imaging was personally reviewed. Chest x-ray shows slightly improving infiltrates bilaterally. CT scan of the chest showed scattered groundglass opacities and mediastinal lymphadenopathy. - Physical Exam General: Alert, Oriented x3, Cooperative, No apparent distress, Well developed, Well nourished, - - Speaking in full sentences. HEENT: Atraumatic, PERRLA, EOMI, Normocephalic, - - No scleral icterus or injection noted Oral: Moist Mucosa, No Gingival or Mucosal Lesions/ Ulcerations Neck: Supple, No JVD, No Nodes, Trachea Midline Lungs: No rhonchi, No wheeze, Diminished, Rales - Bilateral, - - Symmetric expansion. No dullness to percussion. Cardiovascular: Regular rate, Regular Rhythm, Normal S1, Normal S2, No murmurs, No rub noted, No Gallop Abdomen: Bowel Sounds Present, Soft, Non Tender, Non-Distended Extremities: No clubbing, No cyanosis, No edema, Capillary Refill Less than 3 Seconds Skin: No rashes, No breakdown, - - Areas of dry skin noted. Musculoskeletal: No Tenderness to Palpation of Joints or Extremities Lymphatic: No Cervical, Supraclavicular, or Inguinal Adenopathy Neurological: Cranial nerves II-XII grossly intact, Neuro grossly intact, Motor Exam 5/5 strength throughout Psych/Mental Status: Alert and oriented to time, place, person, mood and affect Vital Signs Temp Pulse Resp BP Pulse Ox 37.1 C 100 18 120/83 H 95 12/07/18 13:57 12/07/18 13:57 12/07/18 13:57 12/07/18 13:57 12/07/18 14:07 Oxygen Delivery Method Room Air Weight: 60.1 kg Body Mass Index (BMI) 25.0 Intake and Output for Last 24 Hours 12/05/18 12/06/18 12/07/18 23:59 23:59 23:59 Intake Total 200 / 200 1830 / 1830 150 / 150 Output Total 750 / 750 Balance 200 / 200 1080 / 1080 150 / 150 Microbiology Past 72 Hours 12/02/18 13:15 Blood Culture - Final Blood Culture (Wb) - Right Hand No growth in 5 days. 12/02/18 13:15 Blood Culture - Final Blood Culture (Wb) - Anticubital Left No growth in 5 days. 12/03/18 09:50 Throat Culture - Final Mucosa - Throat 12/02/18 23:00 Gram Stain - Final Sputum, Expectorated/Coughed Respiratory Culture - Final Mixed normal respiratory santiago. No Haemophilus, Streptococcus pneumoniae, beta-hemolytic Streptococcus or Staphylococcus aureus isolated. Clinical Impression(s) from Imaging Studies Chest X-Ray 12/02/18 11:49 IMPRESSION: Increased markings at the lung bases suggestive of atelectasis and/or early infiltrates. Follow-up is recommended. Electronically Signed: Álvaro Chávez MD at 12:46 EST , Service support , Chest X-Ray 12/03/18 05:59 IMPRESSION: Bilateral patchy infiltrates worse in the right lower lobe. This has progressed as compared to prior study. Electronically Signed: Álvaro Chávez MD at 8:34 EST , Service support , Chest CT 12/03/18 08:42 IMPRESSION: Multifocal patchy alveolar infiltrates worse in the right upper and right lower lobes. This may represent pneumonic infiltrates. Radiographic follow-up is recommended. Diffuse fatty infiltration of the liver. I suspect a 1 cm x 0.93 cm cyst in the right lobe of the liver. Electronically Signed: Álvaro Chávez MD at 13:49 EST , Service support , Chest X-Ray 12/07/18 09:55 IMPRESSION: Improved aeration as compared to prior study. Residual patchy infiltrates persist. Further follow-up is recommended. Electronically Signed: Álvaro Chávez MD at 12:52 EST , Service support , Assessment/Plan All Active Problems Atypical pneumonia (Acute) Nonproductive cough (Acute) Chills (Acute) Malaise and fatigue (Acute) RECOMMENDATIONS: 1. Obtain walking oximetry 2. Complete antibiotics per ID recommendations 3. Obtain chest x-ray in 4-6 weeks 4. Follow-up with nurse practitioner in our office following chest x-ray IMPRESSIONS: 1. Sepsis secondary to community-acquired pneumonia Patient's cultures have been negative to date. Patient has been treated with Levaquin therapy. CT scan of the chest did show bilateral groundglass opacities with mediastinal lymphadenopathy. Clinical suspicion for improvement with residual findings on chest x-ray. Differential diagnosis of abnormal chest x-ray would include embolic pneumonia, hypersensitivity pneumonitis, community-acquired pneumonia and influenza. Patient should have a walking oximetry. If saturations are acceptable, patient can likely be discharged from a pulmonary perspective with a repeat chest x-ray in 4-6 weeks. Patient should follow-up with her nurse practitioner in our office following chest x-ray. If clear, repeat CT scan is likely not indicated. 2. Acute alcohol withdrawal Patient reports only 2-4 beers per day, but did go through acute alcohol withdrawal requiring Librium therapy during this hospitalization. Pattern on CT scan is not consistent with aspiration pneumonia. Defer to social work on possible outpatient options. 3. Dehydration/euvolemic hyponatremia/fatty liver from chronic alcohol use/hypokalemia Complicates care, management, recovery and prognosis. Patient has responded well to hospitalist therapy. Code Visit Inpatient E&M: 22758 Init Hosp L2
--- NOTE | 2018-12-07 14:17 | CON.PCM_ITS ---
Problem List (1) Atypical pneumonia Status: Acute (2) Nonproductive cough Status: Acute (3) Chills Status: Acute (4) Malaise and fatigue Status: Acute Reason for Consult Date of Consultation: 12/07/18 Reason for Consultation: Pneumonia, abnormal chest x-ray History of Present Illness: The patient is a 48 year old M, with no reported past medical history, who presented to [facility] on 12/02/2018 secondary to fever, chills and nonproductive cough over the last week. Patient did also reported some diarrhea over the last 48 hours. Patient had denied any hemoptysis, dysuria, hematuria or trauma at that time. Patient states that he had some generalized muscle aching that he thought was secondary to persistent coughing. On initial presentation, patient was febrile to 103.2 with slightly elevated creatinine at 1.65. Patient was admitted to the floor and initiated on Levaquin therapy. Over the course of patient's hospitalization he feels that he has improved. Patient has been seen by infectious disease. Patient's repeat chest x-ray showed persistent infiltrates, so I was asked to see the patient. Patient states his cough is improved, but readily admits that he is not been out of bed much since being admitted. Patient does report cramping of his feet and calves that he attributes to being in bed. Patient denies ever having been in the hospital previously for breathing complications. Patient reports he has been in the [place] for approximately 18 years. Arturo sung denies any travel history. Patient did smoke for 5 years, but states he quit some time ago. Patient denies any history of asthma or COPD. Patient is never been admitted to the hospital that he is aware of previously. Patient does report drinking 2-4 beers per day, but denies any aspiration events. Patient denies any IV drug use. Patient has no history of trauma or inhalation injury. 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 Review of systems otherwise negative x10 systems. Past Medical History Allergies No Known Allergies Allergy (Verified 12/02/18 11:31) Home Medications: Ambulatory Orders Medication Instructions Recorded levoFLOXacin tablet [Levaquin 750 mg PO DAILY@0600 #5 tab 12/04/18 tablet] Surgical History: no surgical history Psychiatric History: No pertinent psych hx Lives: Spouse/ Significant Other Smoking Status: Former smoker Tobacco Use: Cigarettes Alcohol: Occasional Drugs: None - *Family History Maternal History Items: No pertinent history Paternal History Items: No pertinent history Review of Systems Comment: See HPI, otherwise negative x10 systems Patient Problems: Active and Suspected Problems Nonproductive cough (Acute) Chills (Acute) Malaise and fatigue (Acute) Objective: All imaging was personally reviewed. Chest x-ray shows slightly improving infiltrates bilaterally. CT scan of the chest showed scattered groundglass opacities and mediastinal lymphadenopathy. - Physical Exam General: Alert, Oriented x3, Cooperative, No apparent distress, Well developed, Well nourished, - - Speaking in full sentences. HEENT: Atraumatic, PERRLA, EOMI, Normocephalic, - - No scleral icterus or injection noted Oral: Moist Mucosa, No Gingival or Mucosal Lesions/ Ulcerations Neck: Supple, No JVD, No Nodes, Trachea Midline Lungs: No rhonchi, No wheeze, Diminished, Rales - Bilateral, - - Symmetric expansion. No dullness to percussion. Cardiovascular: Regular rate, Regular Rhythm, Normal S1, Normal S2, No murmurs, No rub noted, No Gallop Abdomen: Bowel Sounds Present, Soft, Non Tender, Non-Distended Extremities: No clubbing, No cyanosis, No edema, Capillary Refill Less than 3 Seconds Skin: No rashes, No breakdown, - - Areas of dry skin noted. Musculoskeletal: No Tenderness to Palpation of Joints or Extremities Lymphatic: No Cervical, Supraclavicular, or Inguinal Adenopathy Neurological: Cranial nerves II-XII grossly intact, Neuro grossly intact, Motor Exam 5/5 strength throughout Psych/Mental Status: Alert and oriented to time, place, person, mood and affect Vital Signs Temp Pulse Resp BP Pulse Ox 37.1 C 100 18 120/83 H 95 12/07/18 13:57 12/07/18 13:57 12/07/18 13:57 12/07/18 13:57 12/07/18 14:07 Oxygen Delivery Method Room Air Weight: 60.1 kg Body Mass Index (BMI) 25.0 Intake and Output for Last 24 Hours 12/05/18 12/06/18 12/07/18 23:59 23:59 23:59 Intake Total 200 / 200 1830 / 1830 150 / 150 Output Total 750 / 750 Balance 200 / 200 1080 / 1080 150 / 150 Microbiology Past 72 Hours 12/02/18 13:15 Blood Culture - Final Blood Culture (Wb) - Right Hand No growth in 5 days. 12/02/18 13:15 Blood Culture - Final Blood Culture (Wb) - Anticubital Left No growth in 5 days. 12/03/18 09:50 Throat Culture - Final Mucosa - Throat 12/02/18 23:00 Gram Stain - Final Sputum, Expectorated/Coughed Respiratory Culture - Final Mixed normal respiratory santiago. No Haemophilus, Streptococcus pneumoniae, beta-hemolytic Streptococcus or Staphylococcus aureus isolated. Clinical Impression(s) from Imaging Studies Chest X-Ray 12/02/18 11:49 IMPRESSION: Increased markings at the lung bases suggestive of atelectasis and/or early infiltrates. Follow-up is recommended. Electronically Signed: Álvaro Chávez MD at 12:46 EST , Service support , Chest X-Ray 12/03/18 05:59 IMPRESSION: Bilateral patchy infiltrates worse in the right lower lobe. This has progressed as compared to prior study. Electronically Signed: Álvaro Chávez MD at 8:34 EST , Service support , Chest CT 12/03/18 08:42 IMPRESSION: Multifocal patchy alveolar infiltrates worse in the right upper and right lower lobes. This may represent pneumonic infiltrates. Radiographic follow-up is recommended. Diffuse fatty infiltration of the liver. I suspect a 1 cm x 0.93 cm cyst in the right lobe of the liver. Electronically Signed: Álvaro Chávez MD at 13:49 EST , Service support , Chest X-Ray 12/07/18 09:55 IMPRESSION: Improved aeration as compared to prior study. Residual patchy infiltrates persist. Further follow-up is recommended. Electronically Signed: Álvaro Chávez MD at 12:52 EST , Service support , Assessment/Plan All Active Problems Atypical pneumonia (Acute) Nonproductive cough (Acute) Chills (Acute) Malaise and fatigue (Acute) RECOMMENDATIONS: 1. Obtain walking oximetry 2. Complete antibiotics per ID recommendations 3. Obtain chest x-ray in 4-6 weeks 4. Follow-up with nurse practitioner in our office following chest x-ray IMPRESSIONS: 1. Sepsis secondary to community-acquired pneumonia Patient's cultures have been negative to date. Patient has been treated with Levaquin therapy. CT scan of the chest did show bilateral groundglass opacities with mediastinal lymphadenopathy. Clinical suspicion for improvement with residual findings on chest x-ray. Differential diagnosis of abnormal chest x-ray would include embolic pneumonia, hypersensitivity pneumonitis, community- acquired pneumonia and influenza. Patient should have a walking oximetry. If saturations are acceptable, patient can likely be discharged from a pulmonary perspective with a repeat chest x-ray in 4-6 weeks. Patient should follow-up with her nurse practitioner in our office following chest x-ray. If clear, repeat CT scan is likely not indicated. 2. Acute alcohol withdrawal Patient reports only 2-4 beers per day, but did go through acute alcohol withdrawal requiring Librium therapy during this hospitalization. Pattern on CT scan is not consistent with aspiration pneumonia. Defer to social work on possible outpatient options. 3. Dehydration/euvolemic hyponatremia/fatty liver from chronic alcohol use/hypokalemia Complicates care, management, recovery and prognosis. Patient has responded well to hospitalist therapy. Code Visit Inpatient E&M: 08281 Init Hosp L2
--- NOTE | 2018-12-07 14:54 | DCINST_ITS ---
- Discharge Diagnoses Current Active Problems: Current Active and Chronic Problems Nonproductive cough (Acute) Chills (Acute) Malaise and fatigue (Acute) You will use the following diet at home:: No restrictions Your food should be the consistency of: Regular Your liquids should be the consistency of: Regular/Thin Discharge Activity: Return to Normal Activity Return to work on:: 12/14/18 Weight Bearing Status: Full weight bearing Allergies/Adverse Reactions: Allergies No Known Allergies Allergy (Verified 12/02/18 11:31) Primary Care Physician: Care Physician,No Primary [Primary Care Provider] - Please follow up with your Primary Care Physician in: in 5-7 days Test Results: Test results from this visit will be discussed in further detail at your follow- up appointment, if applicable. Please Follow Up With: Sandip Mcguire MD When: 4-6 weeks, get CXR before appt Proposed Discharge Date: 12/04/18
--- NOTE | 2018-12-07 15:07 | CASEMGMT ---
Social Work Note Pt is discharging home today. SW met with pt. Pt denied needing additional resources at this time. 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
--- NOTE | 2018-12-10 08:55 | PCM.DC.SUM ---
Discharge Date and Diagnosis Date of Admission: 12/02/18 Date of Discharge: 12/07/18 - Primary Discharge Diagnosis #1 sepsis secondary to bilateral community-acquired pneumonia-probably gram-positive bacterial #2 bilateral community-acquired pneumonia-felt to be gram-positive bacterial #4 diarrhea-in [place] to acute viral gastroenteritis #5 acute alcohol withdrawal without complications #6 chronic alcohol abuse Hospital Course and Treatment Operations: None Procedures: None Summary of Care Provided: The patient is a 48 year old M who was seen in the emergency room at [facility] with chief complaint of chills, nonproductive cough, and malaise. Workup in the emergency room showed a normal white blood cell count, creatinine was elevated at 1.65 and BUN was 23. Lactic acid was normal, patient's influenza screen was negative. Temperature in the emergency room was elevated at 103.2, patient met criteria for acute sepsis with his chest x-ray showing increased markings at the lung bases indicative of possible pneumonia. Pulse ox on room air was normal. Patient was admitted to [place] [address], placed on IV antibiotics and aerosol treatments, he felt better but then went into alcohol withdrawal, he was placed on benzodiazepines and there were no complications from his alcohol withdrawal. Patient was seen in consultation by pulmonary medicine and infectious diseases. On 12/07/18, patient was seen and examined: On examination he appeared in good health and spirits. Vital signs as documented. Skin warm and dry and without overt rashes. Neck without JVD. Lungs and inspiratory rales were noted at the bases of the lungs bilaterally. Heart exam notable for regular rhythm, normal sounds and absence of murmurs, rubs or gallops. Abdomen unremarkable and without evidence of organomegaly, masses, or abdominal aortic enlargement. Extremities nonedematous. Neuro: Cranial nerves II through XII are grossly intact, no focal motor deficits were noted, sensation to light touch and pinprick intact. Psych: Patient is alert and oriented x3, he does not appear anxious or depressed 12/07/18, patient had a chest x-ray which showed persistence of bilateral infiltrates, due to this, I had pulmonary medicine see the patient and they recommended follow-up in their office as an outpatient. Patient was discharged on 12/07/18 in stable condition. - Physical Exam Vital Signs Temp Pulse Resp BP Pulse Ox 98.7 F 100 18 120/83 H 96 12/07/18 15:31 02/04/19 15:31 12/07/18 15:31 12/07/18 15:31 12/07/18 15:31 Oxygen Delivery Method Room Air Weight: 60.1 kg Body Mass Index (BMI) 25.0 Microbiology Past 72 Hours 12/02/18 13:15 Blood Culture - Final Blood Culture (Wb) - Right Hand No growth in 5 days. 12/02/18 13:15 Blood Culture - Final Blood Culture (Wb) - Anticubital Left No growth in 5 days. Discharge Activity: Return to Normal Activity Return to work on:: 12/14/18 Weight Bearing Status: Full weight bearing Home Medications: Medications to take at Discharge Levofloxacin [Levaquin] 750 mg PO DAILY #4 tablet 12/09/18 Primary Care Physician: Care Physician,No Primary [Primary Care Provider] - Please follow up with your Primary Care Physician in: in 5-7 days Please Follow Up With: Sandip Mcguire MD When: 4-6 weeks, get CXR before appt Disposition: Home Minutes spent on discharge:: 32 Patient Condition:: Stable Medical Necessity - Tobacco Use Smoking Status: Former smoker Tobacco Use: Cigarettes Meaningful Use Info Meaningful Use Diagnoses (Choose all that apply): None applicable Code Visit Inpatient E&M: 41438 Disch Hosp
--- NOTE | 2018-12-10 09:01 | DS.PCM_ITS ---
Discharge Date and Diagnosis Date of Admission: 12/02/18 Date of Discharge: 12/07/18 - Primary Discharge Diagnosis #1 sepsis secondary to bilateral community-acquired pneumonia-probably gram- positive bacterial #2 bilateral community-acquired pneumonia-felt to be gram-positive bacterial #4 diarrhea-in [place] to acute viral gastroenteritis #5 acute alcohol withdrawal without complications #6 chronic alcohol abuse Hospital Course and Treatment Operations: None Procedures: None Summary of Care Provided: The patient is a 48 year old M who was seen in the emergency room at [facility] with chief complaint of chills, nonproductive cough, and malaise. Workup in the emergency room showed a normal white blood cell count, creatinine was elevated at 1.65 and BUN was 23. Lactic acid was normal, patient's influenza screen was negative. Temperature in the emergency room was elevated at 103.2, patient met criteria for acute sepsis with his chest x-ray showing increased markings at the lung bases indicative of possible pneumonia. Pulse ox on room air was normal. Patient was admitted to [place] [address], placed on IV antibiotics and aerosol treatments, he felt better but then went into alcohol withdrawal, he was placed on benzodiazepines and there were no complications from his alcohol withdrawal. Patient was seen in consultation by pulmonary medicine and infectious diseases. On 12/07/18, patient was seen and examined: On examination he appeared in good health and spirits. Vital signs as documented. Skin warm and dry and without overt rashes. Neck without JVD. Lungs and inspiratory rales were noted at the bases of the lungs bilaterally. Heart exam notable for regular rhythm, normal sounds and absence of murmurs, rubs or gallops. Abdomen unremarkable and without evidence of organomegaly, masses, or abdominal aortic enlargement. Extremities nonedematous. Neuro: Cranial nerves II through XII are grossly intact, no focal motor deficits were noted, sensation to light touch and pinprick intact. Psych: Patient is alert and oriented x3, he does not appear anxious or depressed 12/07/18, patient had a chest x-ray which showed persistence of bilateral infiltrates, due to this, I had pulmonary medicine see the patient and they recommended follow-up in their office as an outpatient. Patient was discharged on 12/07/18 in stable condition. - Physical Exam Vital Signs Temp Pulse Resp BP Pulse Ox 98.7 F 100 18 120/83 H 96 12/07/18 15:31 02/04/19 15:31 12/07/18 15:31 12/07/18 15:31 12/07/18 15:31 Oxygen Delivery Method Room Air Weight: 60.1 kg Body Mass Index (BMI) 25.0 Microbiology Past 72 Hours 12/02/18 13:15 Blood Culture - Final Blood Culture (Wb) - Right Hand No growth in 5 days. 12/02/18 13:15 Blood Culture - Final Blood Culture (Wb) - Anticubital Left No growth in 5 days. Discharge Activity: Return to Normal Activity Return to work on:: 12/14/18 Weight Bearing Status: Full weight bearing Home Medications: Medications to take at Discharge Levofloxacin [Levaquin] 750 mg PO DAILY #4 tablet 12/09/18 Primary Care Physician: Care Physician,No Primary [Primary Care Provider] - Please follow up with your Primary Care Physician in: in 5-7 days Please Follow Up With: Sandip Mcguire MD When: 4-6 weeks, get CXR before appt Disposition: Home Minutes spent on discharge:: 32 Patient Condition:: Stable Medical Necessity - Tobacco Use Smoking Status: Former smoker Tobacco Use: Cigarettes Meaningful Use Info Meaningful Use Diagnoses (Choose all that apply): None applicable Code Visit Inpatient E&M: 51265 Disch Hosp
== END 2018-12-07 15:31 | disposition home or self-care (01) | DRG 871 ==
LOC: ED 12:55 → MS3 14:44
PROVIDERS: Internal Medicine; Admitting Provider Internal Medicine; Emergency Provider Emergency Medicine; Referring Provider Internal Medicine; Visit Provider Internal Medicine
DX: A41.9 Sepsis, unspecified organism (principal); J18.9 Pneumonia, unspecified organism; F10.231 Alcohol dependence with withdrawal delirium; E87.1 Hypo-osmolality and hyponatremia; E86.0 Dehydration; Z23 Encounter for immunization; E87.6 Hypokalemia; Z87.891 Personal history of nicotine dependence; K70.0 Alcoholic fatty liver
CPT/HCPCS: 36415; 71045; 71046; 71250; 80048; 81001; 83605; 83735; 85025; 85027; 87040; 87070; 87205; 87449; 87633; 87804; 87880; 93005; 94640; 97802; 99285; J7030; 90686; A4216; J2405

== ENCOUNTER 2018-12-09 21:52 | Emergency (ER) | payer OTHER, SELFPAY ==
[2018-12-02 14:45] VITALS: BMI 25.0
[2018-12-09 21:53] VITALS: BP 119/79; PULSE 113; RESP 16; TEMP 37.3; O2SAT 95; BMI 26.6
[2018-12-09 22:07] VITALS: BP 113/77; PULSE 109; RESP 12; O2SAT 94
[2018-12-09 22:23] VITALS: BP 113/77; PULSE 109; RESP 12; TEMP 37.3; O2SAT 94
[2018-12-09] MEDS: Ketorolac 30 MG/ML Syringe IV (22:23)
[2018-12-09] MEDS: 0.9% Normal Saline 1,000 ML 1000 ML IV (22:23)
--- NOTE | 2018-12-09 22:28 | RAD_ITS ---
STUDY: X-RAY CHEST REASON FOR EXAM: Male, 48 years old. Cough TECHNIQUE: Frontal and lateral views COMPARISON: December 07, 2018 FINDINGS: The lungs are not fully expanded. Persistent patchy infiltrates bilaterally, right more than left. Normal size heart. Normal mediastinum and ericka. Normal visualized pulmonary arteries. Normal visualized aortic arch and descending thoracic aorta. Mild degenerative changes of the thoracic spine. Normal visualized ribs, clavicles, and shoulders. There is no demonstrated abnormality of the visualized soft tissue structures of the upper abdomen. RAD/Chest PA and Lateral IMPRESSION: Persistent patchy bilateral infiltrates. Electronically Signed: Dipesh Rodriguez DO at 22:49 EST Tel [phone], Service support ,
[2018-12-09 22:35] LABS: Absolute Lymphocyte Count 1.31 X10^3/ul (0.83-4.51); Absolute Neutrophil Count 7.8 X10^3/uL (2.0-7.7); Basophil# 0.02 X10^3/uL; Basophil% 0.2 % (0-1); Eosinophil# 0.14 X10^3/uL; Eosinophils% 1.3 % (0-5); Hemoglobin 13.5 g/dl (13.0-16.5); Lymphocyte # 1.31 X10^3/ul (4.0); Lymphocyte % 12.5 % (19-41); Mean Corp Hgb Conc 33.8 g/gl (32-36); Mean Corpuscular Hgb 32.9 pg (27.0-32.0); Mean Corpuscular Volume 97.6 fL (80-94); Mean Platelet Vol. 9.8 fl (6.2-12.0); Monocyte# 1.18 X10^3/uL; Monocyte% 11.3 % (0-10); Neutrophil # 7.79 X10^3/uL (2.7-7.7); Neutrophil % 74.3 % (47-70); Platelet Count 436 K/mm3 (150-450); RBC Distribution Width CV 13.5 % (11.6-14.6); RBC Distribution Width SD 47.8 fl (35.1-43.9); White Blood Count 10.5 K/mm3 (4.4-11.0)
[2018-12-09 22:36] LABS: POSITIVE COUNT NO; POSITIVE DIFFERENTIAL NO; POSITIVE MORPHOLOGY NO
[2018-12-09 22:51] LABS: Anion Gap 9 (5-15); BUN 17 mg/dL (7-18); BUN/Creat Ratio 16.3 RATIO (10-20); Calcium,Total 8.8 mg/dL (8.5-10.1); Chloride 103 mmol/L (98-107); Creatinine, Serum 1.04 mg/dL (0.70-1.30); EST Glomerular Filtration Rate 81 mL/min (>60); Est Glom Filt Rate - Afr Amer 98 mL/min (>60); Estimated Creatinine Clearance 73.56 ml/min; Glucose 168 mg/dL (74-106); Potassium 3.6 mmol/L (3.5-5.1); Sodium Level 136 mmol/L (136-145)
[2018-12-09] MEDS: levoFLOXacin IV 750 MG/150 ML BAG 100 MG IV (23:03)
[2018-12-09 23:04] VITALS: BP 102/70; PULSE 94; RESP 26; TEMP 37.1; O2SAT 94
[2018-12-09 23:26] LABS: Lactic Acid 1.4 mmol/L (0.4-2.0)
--- NOTE | 2018-12-09 23:44 | ED.VISSUMM ---
- ER Visit Summary Date of Service: 12/09/18 Chief Complaint: Cough History of Present Illness: The patient is a 48 M with no primary care physician. Patient reports that he was admitted for pneumonia last week. He states that he was discharged without antibiotics. He complains that when he rolls over in bed he gets right-sided abdominal pain and left-sided chest pain. Patient denies any fever or chills. No shortness of breath. No nausea, vomiting, diarrhea. No dysuria or frequency. He does complain of generalized weakness. Physical Examination: Vitals: 99.2, 113/77, 109, 12, 94% room air which is not hypoxic. General: Well-nourished and well-developed. Head: Normocephalic atraumatic. Neck: Supple, no lymphadenopathy. No JVD. Nontender. Cardiovascular: Regular rate and rhythm. No murmurs. Respiratory: No respiratory distress. Mild rhonchi bilaterally. Abdominal: Soft, nontender, nondistended, normal bowel sounds. No guarding, rebound, or peritoneal signs. Back: Nontender. Extremities: Nontender, no edema. Skin: Normal color, no rash. Neurologic: Alert and oriented ?3. Cranial nerves II through XII are intact. Normal strength and sensation. Psych: Normal affect. Test Results: Chest x-ray shows persistent patchy infiltrates bilaterally that are improved from prior. Lactic acid is 1.4. Chem-7 shows a glucose 168. CBC shows 7 neutrophils 74 lymphs lites of 13. Emergency Department Course and Treatment: Patient had an IV placed. He was given a liter normal saline. He was given Toradol and Levaquin IV. He is resting comfortably. I did review his recent hospitalization. He had negative influenza and respiratory panels. Antigens for Legionella and strep were negative. Blood cultures were negative. Sputum cultures were negative. He was seen by infectious disease and pulmonology. Treatment Plan: The patient has a curb 65 score of 0 and a port score of 48. He was discussed with Dr. Mcguire and will be discharged on 5 days of Levaquin. Instructed to follow-up for a repeat x-ray in 4-6 weeks. Return to the emergency department for any worsening symptoms. Disposition: To home in improved and stable condition. Impression: 1. Pneumonia, community-acquired, improved. This note was generated with Dragon dictation software. It may contain incorrect words, spelling, and punctuation that were not noted in review of the chart prior to signing ED Disposition - Plan for ED Patient: Instructions: ED Pneumonia Adult Prescriptions: Levofloxacin [Levaquin] 750 mg PO DAILY #4 tablet Referrals: Sandip Mcguire MD [STAFF PHYSICIAN] - 01/11/19
[2018-12-10] VITALS: BP 124/82; PULSE 81; RESP 19; TEMP 37.1; O2SAT 94
[2018-12-10 00:52] VITALS: BP 146/83; PULSE 87; RESP 15; O2SAT 98
--- NOTE | 2018-12-10 00:53 | ED.RN ---
PT GIVEN WRITTEN AND VERBAL DISCHARGE INSTRUCTIONS AND EDUCATED ON HOME GOING PRESCRIPTIONS. PT IV D/C AND COVERED WITH 2X2 GAUZE. PT EDUCATED TO FOLLOW UP WITH [facility]. PT VERBALIZES UNDERSTANDING AND DENIES ANY FURTHER QUESTIONS. THIS RN CONTACTED A TAXI TO TAKE PT HOME. PT DRESSES SELF AND AMBULATES TO WAITING AREA FOR TAXI.
== END 2018-12-10 01:06 | disposition home or self-care (01) ==
LOC: ED 22:29
PROVIDERS: Emergency Provider Emergency Medicine
DX: J18.9 Pneumonia, unspecified organism (principal)
CPT/HCPCS: 71046; 80048; 83605; 85025; 87040; 96361; 96365; 96366; 96375; 99284; J7030; A4216